=== PATIENT | female | born 1940 | race Caucasian/White ===

== ENCOUNTER 2019-04-03 12:26 | Observation (INO) | payer MEDICARE, BC ==
[~2019-04-03] VITALS: Ht 165.1 cm; Wt 104.5 kg
--- NOTE | 2019-04-03 12:26 | NUR ---
PT TO ROOM VIA EMS
--- NOTE | 2019-04-03 12:31 | NUR ---
PT TAKEN TO CT. SCAN
--- NOTE | 2019-04-03 13:00 | NUR ---
PT RESTING QUIETLY ON STRETCHER, DUE TO TAKING BLOOD THINNERS, INFORMED PT THAT SHE WOULD MOST LIKELY BE STAYING IN HOSPITAL. PT VOICES UNDERSTANDING. WARM BLANKET GIVEN. 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 AT BEDSIDE.
[2019-04-03 13:23] LABS: HEMATOCRIT 33.6 % (37.0-47.0); HEMOGLOBIN 11.2 g/dl (12.0-16.0); IMMATURE GRANULOCYTES 0.6 % (0.0-5.0); MEAN CELL VOLUME 91.6 fL CALC (80.0-100.0); MEAN CORPUSCULAR HGB 30.5 pG CALC (26.0-32.0); MEAN CORPUSCULAR HGB CONC 33.3 g/L CALC (32.0-36.0); NEUT# 4.5 thou/uL (2.00-7.15); RED BLOOD COUNT 3.67 mill/uL (4.20-5.60); RED CELL DISTRI WIDTH 12.9 % (11.5-15.5)
--- NOTE | 2019-04-03 13:50 | NUR ---
PT STATES HEADACHE HAS LESSENED. LAYING ON SIDE WATCHING TV AT THIS TIME.
[2019-04-03 14:31] LABS: ANION GAP 13 (6-22 (CALC)); BUN 19 mg/dL (8-23); BUN/CREATININE RATIO 27 (12-20 (CALC)); CARBON DIOXIDE 25 mmol/l (22-30); CHLORIDE 96 mmol/l (95-108); CREATININE 0.7 mg/dL (0.5-1.0); GFR > 60 ML/MIN (>=60 (CALC)); GFR FOR AFR.AMER. > 60 ML/MIN (>=60 (CALC)); POTASSIUM 4.4 mmol/l (3.5-5.1); SODIUM 130 mmol/l (137-146)
[2019-04-03] MEDS ORDERED: LOSARTAN POTASS50 MG PO (14:33)
[2019-04-03] MEDS ORDERED: ZETIA10 MG PO (14:34)
[2019-04-03] MEDS ORDERED: LEVOTHYROXIN75 MCG PO (14:34)
[2019-04-03] MEDS ORDERED: CITALOPRAM40 M1 PO (14:34)
[2019-04-03] MEDS ORDERED: CARTIA XT180 MG PO (14:34)
[2019-04-03] MEDS ORDERED: CALCIUM600 M1 PO (14:35)
[2019-04-03] MEDS ORDERED: VITAMIN B-1100 M1 PO (14:35)
[2019-04-03] MEDS ORDERED: VITAMIN D32000 UNIT PO (14:36)
[2019-04-03] MEDS ORDERED: MAGNESIUM400 MG PO (14:36)
[2019-04-03] MEDS ORDERED: FOLIC ACID1 MG PO (14:37)
[2019-04-03] MEDS ORDERED: PROTONIX40 M2 PO (14:37)
[2019-04-03] MEDS ORDERED: SINGULAIR10 MG PO (14:38)
[2019-04-03] MEDS ORDERED: PROAIR DIG108 MCG/AC IN (14:38)
[2019-04-03] MEDS ORDERED: MELOXICAM7.5 MG PO (14:38)
[2019-04-03] MEDS ORDERED: XARELTO10 MG PO (14:39)
[2019-04-03] MEDS ORDERED: DULERA1 AE1 IN (14:39)
--- NOTE | 2019-04-03 14:47 | NUR ---
ASSISSTED PT TO BEDSIDE COMMODE. STATES IS SLIGHTLY INCREASED UNSTEADINESS. BLOOD PRESSURE HAS DECREASED 106/72
--- NOTE | 2019-04-03 15:21 | NUR ---
PT REMAINS PAIN FREE , RESTING QUIETLY ON STRETCHER, AT BEDSIDE.
--- NOTE | 2019-04-03 16:25 | NUR ---
NO HEADACHE AT THIS TIME. PT UP TO BEDSIDE COMMODE. VITAL SIGNS REMAIN STABLE
--- NOTE | 2019-04-03 17:25 | NUR ---
PT RESTING QUIETLY ON STRETCHER , REFUSED THE MEAL TRAY, STATES IT LOOKS NASTY. WILL HAVE BRING HER SOMETHING TO EAT. ALERT/ORIENTED. NO DIZZINESS AT THIS TIME
--- NOTE | 2019-04-03 18:24 | NUR ---
DR. FERNÁNDEZ SPEAKING WITH PT. ADVISED PT OF BUSY ER STATUS, AND WOULD BE TAKING PT TO ROOM SOON POSSIBLE
--- NOTE | 2019-04-03 18:39 | NUR ---
ADVISED PT THAT ROOM IS NOT READY YET FOR PT TO BE TAKEN TO MED SURG
--- NOTE | 2019-04-03 19:03 | NUR ---
REPORT GIVEN TO CUPOLA OPERATOR FOR CONTINUATION OF CARE.
--- NOTE | 2019-04-03 19:05 | NUR ---
IN ROOM INTRODUCED SELF TO PT. NO C/O. AWAITING ROOM TO BE CLEANED.
--- NOTE | 2019-04-03 19:54 | NUR ---
PT. TAKEN TO CA FLOOR VIA STRETCHER, NO C/O.
--- NOTE | 2019-04-03 20:00 | NUR ---
PT ARRIVED TO FLOOR VIA STRETCHER ACCOMPAINED BY ER STAFF AND . PT ALERT AND ORIENTED X3. NO APPARENT DISTRESS NOTED. PT DENIES ANY PAIN OR DISCOMFORT. PT AMBULATED FROM STRETCHER TO BED WITH STEADY GAIT. PT ORIENTED TO ROOM AND CALL LIGHT SYSTEM. DISCUSSED POC. PT VERBALIZED UNDERSTANDING. CALL LIGHT WITHIN REACH. WILL CONTINUE TO MONITOR.
--- NOTE | 2019-04-03 21:15 | NUR ---
PT CALLED THERMODYNAMICS PROFESSOR TO ROOM DUE TO IV SITE BLEEDING. SMALL AMOUNT OF BLOOD NOTED UNDER EMS DRESSING. DRESSING REMOVED AT THIS TIME. SITE CLEANSE WITH NS AND PATTED DRY. NEW DRESSING APPLIED. IV SITE FLUSHES WELL WITH BRISK BLOOD RETURN. PT TOLERATED WELL. IV SITE WRAPPED WITH STRETCH GAUZE AND CLING NETTING. WILL CONTINUE TO MONITOR.
[2019-04-03 23:21] VITALS: BP 118/60
--- NOTE | 2019-04-04 00:15 | NUR ---
PT RESTING IN BED WITH EYES CLOSED. NO APPARENT DISTRESS NOTED. PT WAKES EASILY. DENIES ANY CURRENT WANTS OR NEEDS. CALL LIGHT WITHIN REACH. WILL CONTINUE TO MONITOR.
[2019-04-04 03:37] VITALS: BP 113/58
--- NOTE | 2019-04-04 04:45 | NUR ---
PT RESTING IN BED. NO APPARENT DISTRESS NOTED. ASSISTED PT TO BSC. PT VOIDED WITHOUT DIFFICULTY. PT DENIES ANY DIZZINESS OR DISCOMFORT. NO CURRENT WANTS OR NEEDS. CALL LIGHT WITHIN REACH. WILL CONTINUE TO MONITOR.
[2019-04-04 05:34] LABS: HEMATOCRIT 33.2 % (37.0-47.0); HEMOGLOBIN 10.5 g/dl (12.0-16.0); MEAN CELL VOLUME 94.3 fL CALC (80.0-100.0); MEAN CORPUSCULAR HGB 29.8 pG CALC (26.0-32.0); MEAN CORPUSCULAR HGB CONC 31.6 g/L CALC (32.0-36.0); RED BLOOD COUNT 3.52 mill/uL (4.20-5.60)
[2019-04-04 05:59] LABS: ANION GAP 12 (6-22 (CALC)); BUN 19 mg/dL (8-23); BUN/CREATININE RATIO 22 (12-20 (CALC)); CARBON DIOXIDE 28 mmol/l (22-30); CHLORIDE 97 mmol/l (95-108); CREATININE 0.8 mg/dL (0.5-1.0); GFR > 60 ML/MIN (>=60 (CALC)); GFR FOR AFR.AMER. > 60 ML/MIN (>=60 (CALC)); POTASSIUM 4.7 mmol/l (3.5-5.1); SODIUM 132 mmol/l (137-146)
[2019-04-04 08:12] VITALS: BP 145/84
--- NOTE | 2019-04-04 11:23 | NUR ---
PATIENT NO C/O PAIN, NO S/S RESP DISTRESS, PATIENT A/O PUPILS ARE REACTIVE NOT EQUAL, WILL CONTINUE TO MONITOR PATIENT HOURLY ROUNDING, CALL LIGHT WITHIN REACH
--- NOTE | 2019-04-04 11:26 | NUR ---
PATIENT A/O PUPILS ARE REACTIVE NOT EQUAL DR. LEDEZMA IS AWARE, MD ORDERED REPEAT CT BRAIN, IF CT BRAIN IS NORMAL PATIENT WILL DC PER MD ORDERS, WILL CONTINUE TO MONITOR PATIENT HOURLY, CALL WITHIN REACH
[2019-04-04 12:04] VITALS: BP 134/76
[2019-04-04 16:13] VITALS: BP 147/63
--- NOTE | 2019-04-04 18:00 | NUR ---
PATIENT A/O, NO S/S RESP, NO C/O PAIN, MD ORDERED PATIENT TO DC TO HOME AND FOLLOW UP WITH PCP IF PATIENT CT BRAIN NORMAL, CT BRAIN NO ACUTE FINDING AWARE OF CT RESULTS, EDUCATED PATIENT DC INSTRUCTION, PATIENT UNDERSTOOD DC INSTRUCTIONS, STAFF ASSISTED PATIENT TO CAR VIA WHEELCHAIR
== END 2019-04-04 18:05 | disposition home or self-care (01) ==
LOC: ED 12:26 → ED-I 13:26 → ED 13:26 → ED-I 15:13 → ED 15:32 → MS2 15:33
PROVIDERS: Family Medicine; ADMIT Internal Medicine; ATTEND Internal Medicine
DX: S00.03XA Contusion of scalp, initial encounter (principal); I48.0 Paroxysmal atrial fibrillation; I10 Essential (primary) hypertension; E03.9 Hypothyroidism, unspecified; M54.9 Dorsalgia, unspecified; G89.29 Other chronic pain; W11.XXXA Fall on and from ladder, initial encounter; Y92.009 Unspecified place in unspecified non-institutional (private) residence as the place of occurrence of the external cause; Z79.01 Long term (current) use of anticoagulants
CPT/HCPCS: G0378

== ENCOUNTER 2019-06-16 14:56 | Inpatient (IN) | payer MEDICARE, BC ==
[~2019-06-16] VITALS: Ht 165.1 cm; Wt 104.5 kg
[~2019-06-16 14:56] MED LIST: CALCIUM600 M1 PO; CARTIA XT180 MG PO; CITALOPRAM40 M1 PO; DULERA1 AE1 IN; FOLIC ACID1 MG PO; LEVOTHYROXIN75 MCG PO; LOSARTAN POTASS50 MG PO; MAGNESIUM400 MG PO; MELOXICAM7.5 MG PO; PROAIR DIG108 MCG/AC IN; PROTONIX40 M2 PO; SINGULAIR10 MG PO; VITAMIN B-1100 M1 PO; VITAMIN D32000 UNIT PO; XARELTO10 MG PO; ZETIA10 MG PO
--- NOTE | 2019-06-16 15:17 | NUR ---
PT TO ROOM FOR EXAM
--- NOTE | 2019-06-16 15:25 | NUR ---
PT ASSESSED. CHANGED TO GOWN AND MONITORS APPLIED. PT REPORTS SHORT OF BREATH WITH PRODUCTIVE COUGH X 1 WEEK. BREATH SOUNDS BILAT EXPIRATORY WHEEZING. DENIES CARDIAC SYMPTOMS.
[2019-06-16 16:07] LABS: HEMATOCRIT 38.9 % (37.0-47.0); IMMATURE GRANULOCYTES 0.3 % (0.0-5.0); MEAN CELL VOLUME 89.8 fL CALC (80.0-100.0); MEAN CORPUSCULAR HGB 28.9 pG CALC (26.0-32.0); MEAN CORPUSCULAR HGB CONC 32.1 g/L CALC (32.0-36.0); NEUT# 6.53 thou/uL (2.00-7.15); RED BLOOD COUNT 4.33 mill/uL (4.20-5.60); RED CELL DISTRI WIDTH 13.1 % (11.5-15.5)
[2019-06-16 16:09] LABS: HEMOGLOBIN 12.5 g/dl (12.0-16.0)
--- NOTE | 2019-06-16 16:25 | NUR ---
PT RESTING COMFORTABLY AWAITING LAB RESULTS
[2019-06-16 16:31] LABS: ANION GAP 12 (6-22 (CALC)); BUN 16 mg/dL (8-23); BUN/CREATININE RATIO 23 (12-20 (CALC)); CARBON DIOXIDE 27 mmol/l (22-30); CHLORIDE 96 mmol/l (95-108); CREATININE 0.7 mg/dL (0.5-1.0); GFR > 60 ML/MIN (>=60 (CALC)); GFR FOR AFR.AMER. > 60 ML/MIN (>=60 (CALC)); POTASSIUM 4.7 mmol/l (3.5-5.1); SODIUM 131 mmol/l (137-146)
[2019-06-16] MEDS ORDERED: STRESS B PO (17:15)
[2019-06-16] MEDS ORDERED: LOSARTAN POTASS50 MG PO (17:16)
[2019-06-16] MEDS ORDERED: FLECAINIDE50 MG PO (17:20)
[2019-06-16] MEDS ORDERED: MELOXICAM7.5 MG PO (17:20)
[2019-06-16] MEDS ORDERED: CLARITHROMYC500 M2 PO (17:21)
--- NOTE | 2019-06-16 17:35 | NUR ---
REPORT GIVEN TO KRISTI MANRIQUEZ. MED SURG
--- NOTE | 2019-06-16 17:42 | NUR ---
PT ARRIVED TO UNIT VIA WHEELCHAIR WITH ER STAFF AND ; ALERT AND ORIENTED. DENIES PAIN. RESPIRATIONS EVEN AND UNLABORED ON ROOM AIR. LOOSE PRODUCTIVE COUGH. LR FLUIDS INFUSING UPON ARRIVAL ALONG WITH ZITHROMAX. TELE ON. WHEEZING THROUGHOUT LUNG NGUYEN. ORIENTED TO ROOM AND CALL LIGHT SYSTEM. PLAN OF CARE DISCUSSED. PT ENCOURAGED TO VERBALIZE CONCERNS. STATES UNDERSTANDING. SAFETY MEASURES IN PLACE. CALL LIGHT WITHIN REACH.
--- NOTE | 2019-06-16 17:45 | NUR ---
PT TAKEN VIA WHEELCHAIR TO MED SURG. TELEMETRY IN PLACE
[2019-06-16 18:11] VITALS: BP 128/71
[2019-06-16 18:25] VITALS: BP 125/65
--- NOTE | 2019-06-16 20:00 | NUR ---
PATIENT RESTING IN BED AT THIS TIME WITH O2 VIA ANASAL CANNULA IN PLACE. AWAKE ALERT AND ORIENTEDX3. IV SITE TO LEFT WRIST INFILTRATED. NEWIV STARTED TO LEFT FOREARM-#22 GAUGE WITH GOOD BLOOD RETURN. PATIENT WITH OCC NON-PRODUCTIVE COUGH. TELE MONITOR INPLACE. UP TO BR TO VOID-WEARS BREIF FOR STRESS INCONT. SAFETY PRECAUTIONS REINFORCED. CALL LIGHT IN REACH. WILL CONT TO MONITOR.
--- NOTE | 2019-06-16 22:00 | NUR ---
PATIENT RESTING IN BED-MEDICATED WITH ROBITUSSIN AC FOR COUGH. SOLU-MEDROL GIVEN ORDERED. TREVOR STATES THAT HER WILL BE BRINGING IN HER FLECAINIDE IN THE MORNING FOR PHARM TO ACCESS. O2 VIA NASAL CANNULA IN PLACE. CALL LIGHT IN REACH. WILL CONT TO MONITOR.
[2019-06-16 22:40] LABS: URINE BILIRUBIN - DIPSTICK NEGATIVE (NEGATIVE); URINE BLOOD DIPSTICK NEGATIVE (NEGATIVE); URINE COLOR YELLOW; URINE GLUCOSE - DIPSTICK NEGATIVE (NEGATIVE); URINE KETONE NEGATIVE (NEGATIVE); URINE LEUK ESTERASE NEGATIVE (NEGATIVE); URINE NITRITE - DIPSTICK NEGATIVE (Negative); URINE PH 6.5 (4.5-8.0); URINE PROTEIN - DIPSTICK NEGATIVE (NEG-TRACE); URINE UROBILINOGEN - DIPSTICK 0.2 E.U./dL (0.2)
[2019-06-16 23:43] VITALS: BP 136/78
[2019-06-17] VITALS (7 sets, daily range): BP systolic 114–170; BP diastolic 54–80
--- NOTE | 2019-06-17 02:00 | NUR ---
APPEARS SLEEPING AT THIS TIME WITH O2 VIA NASAL CANNULA IN PLACE. EYES CLOSED AND RESPS ARE EVEN AND UNLABORED. TELE MONITOR IN PLACE. CALL LIGHT IN REACH. WILL CONT TO MONITOR.
--- NOTE | 2019-06-17 04:00 | NUR ---
APPEARS SLEEPING AT THIS TIME WITH O2 VIA NASAL CANNULA IN PLACE. HOB SLIGHTLY ELEVATED. TELE MONITOR IN PLACE. CALL LIGHT IN REACH. WILL CONT TO MONITOR
--- NOTE | 2019-06-17 07:00 | NUR ---
REPORT RECEIVED FROM MITRA WATTS;PT RESTING IN SEMI FOWLERS POSITION;INTRODUCED SELF TO PT AND POC DISCUSSED;RESPIRATIONS EVEN AND UNLABORED ON RA;PT DENIES ANY CURRENT PAIN OR NEEDS;TELE MONITORING IN PLACE;PT ENCOURAGED TO CALL FOR ASSISTANCE IF NEEDED;FALL PRECAUTIONS IN PLACE WITH BED IN THE LOWEST POSITION AND CALL LIGHT IN REACH;WILL CONTINUE TO MONITOR
--- NOTE | 2019-06-17 07:45 | NUR ---
PT RESTING IN SEMI FOWLERS POSITION,A&O X3;VS OBTAINED AND ASSESSMENT COMPLETED;BP ELEVATED AT 170/63 HR 79, ALL MORNING MEDICATIONS TO BE ADMINISTERED;PT DENIES ANY CURRENT PAIN,PAIN SCALE AND REPORTING EDUCATED;PT REQUESTS COUGH MEDICATION AT THIS IMT, AND IS MEDICATED WITH PRN ROBITUSSIN AC PER ORDER;RESPIRATIONS SHALLOW ON RA,WHEEZY LUNG SOUNDS;NON-PRODUCTIVE COUGH NOTED;ABDOMEN SOFT ON PALPATION AND ACTIVE IN ALL 4 QUADRANTS;WEAK PEDAL PULSES;SKIN INTACT;TELE MONITORING IN PLACE;#22G TO LFA FLUSHED AND PATENT,SITE APPEARS HEALTHY;PT DENIES ANY ADDITIONAL NEEDS AT THIS TIME AND IS ENCOURAGED TO CALL FOR ASSISTANCE IF NEEDED;FALL PRECAUTIONS IN PLACE WITH BED IN THE LOWEST POSITION AND CALL LIGHT IN REACH;WILL CONTINUE TO MONITOR
--- NOTE | 2019-06-17 09:30 | NUR ---
BP RE-CHECK 123/59 HR 80
--- NOTE | 2019-06-17 12:40 | NUR ---
PT RESTING IN SEMI FOWLERS POSITION;RESPIRATIONS REMAIN EVEN AND UNLABORED,SHALLOW ON RA;PT DENIES ANY CURRENT PAIN OR DISCOMFORTS;TELE MONITORING;IV SITE PATENT;ASSESSMENT REMAINS UNCHANGED AT THIS TIME;ENCOURAGED TO CALL FOR ASSISTANCE IF NEEDED;CALL LIGHT IN REACH;WILL CONTINUE TO MONITOR
--- NOTE | 2019-06-17 16:05 | NUR ---
PT RESTING IN SEMI FOWLERS POSITION;RESPIRATIONS EVEN AND UNLABORED ON RA;PT REPORTS HEADACHE PAIN RATING 8/10 ON THE PAIN SCALE AND REQUESTS PAIN MEDICATION,PT TO BE MEDICATED WITH PRN TYLENOL 650MG PO;IV SITE FOUND TO BE INFILTRATED, IV SITE REMOVED WITH CATHETER INTACT AND NEW #22G STARTED TO RIGHT HAND ON 1ST ATTEMPT,PT TOLERATED WELL;PT DENIES ANY ADDITIONAL NEEDS AT THIS TIME AND IS ENCOURAGED TO CALL FOR ASSISTANCE IF NEEDED;FALL PRECAUTIONS IN PLACE WITH CALL LIGHT IN REACH;WILL CONTINUE TO MONITOR
--- NOTE | 2019-06-17 20:00 | NUR ---
PATIENT RESTING IN BED WITH COMPUTER IN FRONT OF HER. AWAKE ALERT AND ORIENTEDX3. TELE MONITOR IN PLACE. IV SITE TO LEFT HAND INTACT AND APPEARS HEALTHY AT THIS TIME WITH GOOD BLOOD RETURN. STILL WITH OCC PRODUCTIVE COUGH WITH THICK YELLOW SECREATIONS PER PATIENT. SAFETY PREAUTIONS REINFORCED. CALL LIGHT IN REACH. WILL CONT TO MONITOR.
--- NOTE | 2019-06-18 | NUR ---
PATIENT STILL AWAKE. VS TAKEN AND REORDED. TELE MONITOR IN PLAE. PATIENT UP TO THE BSC TO VOID SMALL AMT OF YELLOW URINE. SAFETY PRECAUTIONS REINFORCED. CALL LIGHT IN REACH. WILL CONT TO MONITOR.
--- NOTE | 2019-06-18 02:16 | NUR ---
PATIENT IS POSITIONED ON LEFT SIDE WITH EYES CLOSED. APPEARS SLEEPING WITH EYES CLOSED. TELE MONITOR IN PLACE. CALL LIGHT IN REACH. WILL CONT TTO MONITOR.
[2019-06-18 04:21] VITALS: BP 141/80
[2019-06-18 04:42] LABS: HEMATOCRIT 35.8 % (37.0-47.0); HEMOGLOBIN 11.7 g/dl (12.0-16.0); IMMATURE GRANULOCYTES 0.6 % (0.0-5.0); MEAN CELL VOLUME 87.7 fL CALC (80.0-100.0); MEAN CORPUSCULAR HGB 28.7 pG CALC (26.0-32.0); MEAN CORPUSCULAR HGB CONC 32.7 g/dL CAL (32.0-36.0); NEUT# 10.03 thou/uL (2.00-7.15); RED BLOOD COUNT 4.08 mill/uL (4.20-5.60); RED CELL DISTRI WIDTH 12.8 % (11.5-15.5)
[2019-06-18 04:57] LABS: ANION GAP 13 (6-22 (CALC)); BUN 17 mg/dL (8-23); BUN/CREATININE RATIO 28 (12-20 (CALC)); CARBON DIOXIDE 25 mmol/l (22-30); CHLORIDE 97 mmol/l (95-108); CREATININE 0.6 mg/dL (0.5-1.0); GFR > 60 ML/MIN (>=60 (CALC)); GFR FOR AFR.AMER. > 60 ML/MIN (>=60 (CALC)); MAGNESIUM 1.9 mg/dL (1.6-2.3); POTASSIUM 4.2 mmol/l (3.5-5.1); SODIUM 131 mmol/l (137-146)
--- NOTE | 2019-06-18 07:00 | NUR ---
SHIFT CHANGE REPORT, PT AWAKE ALERT AND ORIENTED RELAXING IN BED, NO C/O DISCOMFORT AT THIS TIME, TELE MONITOR IN PLACE, CALL DIETZ IN REACH.
[2019-06-18 07:56] VITALS: BP 154/73
[2019-06-18 11:11] VITALS: BP 146/71
--- NOTE | 2019-06-18 12:00 | NUR ---
SITTING UP IN BED, ATE MEAL, NO C/O DISCOMFORT AT THIS TIME.
[2019-06-18 15:53] VITALS: BP 129/67
--- NOTE | 2019-06-18 16:00 | NUR ---
RELAXING IN ROOM, SPOUSE VISITING.
[2019-06-18 18:31] VITALS: BP 131/72
--- NOTE | 2019-06-18 20:05 | NUR ---
PHYSICAL ASSESMENT COMPLETE. PLAN OF CARE REVIEWED. PT VERBALIZES UNDERSTANDING AND DENIES QUESTIONS. MEDICATED PRN FOR COUGH AND H/A, SEE MAR. PT HAS NO IV ACCESS, NEW IV STARTED. LFA, 22G, X1 ATTEMPT. PT TOLERATED PROCEDURE WELL. DENIES FURTHER NEEDS @ THIS TIME. CALL DIETZ WITHIN REACH. AGREES TO CALL PRN. BED LOCKED IN LOW POSITION W/ BEDRAILS UPX2. ITEMS WITHIN REACH.
[2019-06-18 23:45] VITALS: BP 126/76
--- NOTE | 2019-06-19 | NUR ---
PT SLEEPING, APPEARS COMFORTABLE AND IN NO DISTRESS, RESP REG & UNLABORED. WAKES EASILY. ASSESMENT UNCHANGED. DENIES NEEDS @ THIS TIME. CALL DIETZ REMAINS WITHIN REACH. AGREES TO CALL PRN. FALL AND SAFETY INTERVENTIONS REMAIN IN PLACE.
[2019-06-19 03:51] VITALS: BP 147/84
[2019-06-19 05:41] LABS: ANION GAP 12 (6-22 (CALC)); BUN 18 mg/dL (8-23); BUN/CREATININE RATIO 28 (12-20 (CALC)); CARBON DIOXIDE 26 mmol/l (22-30); CHLORIDE 100 mmol/l (95-108); CREATININE 0.6 mg/dL (0.5-1.0); GFR > 60 ML/MIN (>=60 (CALC)); GFR FOR AFR.AMER. > 60 ML/MIN (>=60 (CALC)); POTASSIUM 4.5 mmol/l (3.5-5.1); SODIUM 133 mmol/l (137-146)
--- NOTE | 2019-06-19 05:48 | NUR ---
NO CHANGES IN ASSESMENT. PT SLEEPING, WAKES EASILY. DENIES NEEDS AT THIS TIME. CALL DIETZ REMAINS WITHIN REACH, AGREES TO CALL PRN. FALL AND SAFETY INTERVENTION REMAIN IN PLACE.
--- NOTE | 2019-06-19 07:05 | NUR ---
REPORT RECEIVED FROM MITRA ALLEN;PT APPEARS TO BE SLEEPING IN SEMI FOWLERS POSITION;NO S/S OF DISTRESS NOTED;RESPIRATIONS EVEN AND UNLABORED ON O2 @ 2L VIA NC;TELE MONITORING IN PLACE;ALL SAFETY PRECAUTIONS IN PLACE WITH BED IN THE LOWEST POSITION AND CALL LIGHT IN REACH;WILL CONTINUE TO MONITOR
[2019-06-19 09:20] VITALS: BP 151/71
--- NOTE | 2019-06-19 09:20 | NUR ---
PT RESTING IN SEMI FOWLERS POSITION,A&O X3;VS OBTAINED AND ASSESSMENT COMPLETED;PT DENIES ANY CURRENT PAIN OR DISCOMFORTS,PAIN SCALE AND REPORTING EDUCATED;RESPIRATIONS SHALLOW ON O2 @ 3L VIA NC,NON-PRODUCTIVE COUGH NOTED;ABDOMEN SOFT ON PALPATION AND ACTIVE IN ALL 4 QUADRANTS;WEAK PEDAL PULSES;SKIN INTACT;TELE MONITORING IN PLACE;#22G TO LFA FLUSHED AND PATENT,SITE APPEARS HEALTHY;PT MEDICATED WITH MOM W/PRUNE JUICE FOR CONSTIPATION;PT DENIES ANY ADDITIONAL NEEDS AND IS ENCOURAGED TO CALL FOR ASSISTANCE IF NEEDED;CALL LIGHT IN REACH;WILL CONTINUE TO MONITOR
[2019-06-19 10:57] VITALS: BP 128/60
--- NOTE | 2019-06-19 11:55 | NUR ---
PT OOB AMBULATING TO RESTROOM INDEPENDENTLY;RESPIRATIONS REMAIN SHALLOW ON O2 @ 3L VIA NC;PT DENIES ANY CURRENT PAIN OR NEEDS;TELE MONITORING IN PLACE;IV SITE REMAINS PATENT;ASSESSMENT REMAINS UNCHANGED AT THIS TIME;PT ENCOURAGED TO CALL FOR ASSISTANCE IF NEEDED;FALL PRECAUTIONS IN PLACE WITH CALL LIGHT IN REACH;WILL CONTINUE TO MONITOR
[2019-06-19 15:43] VITALS: BP 119/61
--- NOTE | 2019-06-19 15:45 | NUR ---
PT RESTING IN SEMI FOWLERS POSITION WITH SPOUSE AT BEDSIDE;PT OCCASIONALLY WALKING THE HALLS WITH ;RESPIRATIONS EVEN AND UNLABORED ON O2 @ 3L VIA NC;PT DENIES ANY CURRENT PAIN OR NEEDS;TELE MONITORING IN PLACE;IV SITE PATENT;ENCOURAGED TO CALL FOR ASSISTANCE IF NEEDED;CALL LIGHT IN REACH;WILL CONTIUE TO MONITOR
[2019-06-19 18:44] VITALS: BP 131/65
--- NOTE | 2019-06-19 20:20 | NUR ---
PHYISCAL ASSESMENT COMPLETE. PLAN OF CARE REVIEWED W/ PT. PT VERBALIZES UNDERSTANDING, DENIES QUESTIONS @ THIS TIME. PT DENIES NEEDS @ THIS TIME. BED LOCKED IN LOW POSITION W/ BEDRAILS UPX2. ITEMS WITHIN REACH. CALL DIETZ WITHIN REACH. AGREES TO CALL PRN.
--- NOTE | 2019-06-19 21:10 | NUR ---
PT DOWN TO CT VIA WC W/ O2 @ 2099, ACCOMPANIED BY Alec COKO LPN. PT RETURNS AT 2106. BACK TO ROOM 279. TOLERATED PROCEDURE WELL. SITTING UP IN CHAIR, USING LABTOP. DENIES NEEDS AT THIS TIME. CALL DIETZ WITHIN REACH. AGREES TO CALL PRN.
[2019-06-20 00:07] VITALS: BP 148/77
--- NOTE | 2019-06-20 00:09 | NUR ---
PT APPEARS TO BE SLEEPING COMFORTABLY. NO APPARENT DISTRESS. RESP REGULAR & UNLABORED. BED REMAINS LOCKED IN LOW POSITION W/ BEDRAILS UPX2. ITEMS REMAIN WITHIN REACH. CALL DIETZ REMAINS WITHIN REACH.
[2019-06-20 04:20] VITALS: BP 140/73
--- NOTE | 2019-06-20 07:10 | NUR ---
REPORT RECIEVED FROM MITRA ALLEN;PT APPEARS TO BE SLEEPING IN SEMI FOWLERS POSITION;NO S/S OF DISTRESS NOTED;RESPIRATIONS SHALLOW ON O2 @ 3L VIA NC;TELE MONITORING IN PLACE;ALL SAFETY PRECAUTIONS IN PLACE WITH BED IN THE LOWEST POSITION AND CALL LIGHT IN REACH;WILL CONTINUE TO MONITOR
[2019-06-20 08:57] VITALS: BP 149/60
--- NOTE | 2019-06-20 09:00 | NUR ---
PT OOB RESTING IN CHAIR WATCHING TV,A&O X3;VS OBTAINED AND ASSESSMENT COMPLETED;PT DENIES ANY CURRENT PAIN OR DISCOMFORTS,PAIN SCALE AND REPORTING EDUCATED;RESPIRATIONS SHALLOW ON O2 @ 2L VIA NC,NON-PRODUCTIVE COUGH NOTED;ABDOMEN DISTENDED/SOFT ON PALPATION AND ACTIVE IN ALL 4 QUADRANTS;WEAK PEDAL PULSES;SKIN INTACT;TELE MONITORING IN PLACE;#20G TO LAC FLUSHED AND PATENT,SITE APPEARS HEALTHY;PT DENIES ANY ADDITIONAL NEEDS AT THIS TIME AND IS ENCOURAGED TO CALL FOR ASSISTANCE IF NEEDED;CALL LIGHT IN REACH;WILL CONTINUE TO MONITOR
--- NOTE | 2019-06-20 09:19 | NUR ---
PT AMBULATING THE HALLWAYS
--- NOTE | 2019-06-20 09:56 | NUR ---
PT AMBULATING THE MOSES WITH RT FOR WALK TEST. O2 SATS DROPPED TO 86 ON RA,O2 REPLACED AND [place] TO 94% ON 2L VIA NC.
--- NOTE | 2019-06-20 10:03 | NUR ---
PT MEDICATED WITH PRN TYLENOL 650MG PO FOR HEADACHE PAIN RATING 8/10 ON THE PAIN SCALE,WILL CONTINUE TO MONITOR
[2019-06-20 10:52] VITALS: BP 147/77
--- NOTE | 2019-06-20 11:15 | NUR ---
AT BEDSIDE DISCUSSING POC WITH PT,BÁRBARA LAFLEUR AT SIDE.
[2019-06-20] MEDS ORDERED: IPRATROPIU0.5 MG/3 M NEB (11:18)
[2019-06-20] MEDS ORDERED: PREDNISONE10 MG PO (11:18)
[2019-06-20] MEDS ORDERED: LEVAQUIN750 MG PO (11:22)
--- NOTE | 2019-06-20 12:15 | NUR ---
PT OOB RESTING IN RECLINER WATCHING TV;RESPIRATIONS EVEN AND UNLABORED ON O2 @ 2L VIA NC;PT DENIES ANY CURRENT PAIN OR NEEDS;TELE MONITORING IN PLACE;IV SITE PATENT;PT TO BE D/C HOME WITH HOME OXYGEN,AWAITING HOME O2 ARRIVAL;PT DENIES ANY ADDITIONAL NEEDS AND IS ENCOURAGED TO CALL FOR ASSISTANCE IF NEEDED;CALL LIGHT IN REACH;WILL CONTINUE TO MONITOR
--- NOTE | 2019-06-20 12:26 | NUR ---
[facility] AT BEDSIDE DELIEVERING HOME OXYGEN.
--- NOTE | 2019-06-20 13:13 | NUR ---
ALL DISCHARGE INSTRUCTIONS PROVIDED AT THIS TIME;PT INSTRUCTED TO MATERIAL CREW SUPERVISOR RX AT [facility] FOR [place],PREDNISONE AND NEBS AND VERBALIZES UNDERSTANDING;PT DENIES ANY ADDITIONAL QUESTIONS OR NEEDS;IV SITE WAS REMOVED WITH CATHETER INTACT AND TELE MONITORING D/C;WHEELCHAIR TO BE PROVIDED FOR D/C HOME;AWAITING SPOUSE FOR TRANSPORTATION.
--- NOTE | 2019-06-20 13:42 | NUR ---
HOME MEDICATION PROVIDED FOR PT TO TAKE HOME FOR D/C.
--- NOTE | 2019-06-20 13:50 | NUR ---
PDischarge instructions given. Patient verbalizes understanding of same. Discharged in stable condition via Wheelchair to Home with spouse. All belongings sent with pt. PT TRANSPORTED TO [facility] IN STABLE CONDITION VIA WHEELCHAIR ACCOMPANIED BY ZEHRA DING AND SPOUSE FOR D/C HOME.SPOUSE TO TRANSORT PT HOME WITH HOME OXYGEN AT SIDE.
--- NOTE | 2019-06-23 13:41 | NUR ---
Riya discharge follow up call completed 06/23/19. Pt. is doing well. No fever, chills, excessive fatigue. Getting stronger each day. Obtained discharge medications and is taking them with no issue. Pt. has a follow up appt. with Dr. Price on . No questions or needs. Pt. states the hospital and staff have been absolutely superb." Very appreciative of the follow up call.
== END 2019-06-20 13:52 | disposition home or self-care (01) | DRG 191 ==
LOC: ED 14:56 → ED-I 16:15 → ED 16:28 → MS2 16:53 → ED 16:53 → ED-I 16:53 → MS2 17:15
PROVIDERS: Family Medicine; Nurse Practitioner Family; ADMIT Internal Medicine; ATTEND Internal Medicine
DX: J43.9 Emphysema, unspecified (principal); E87.1 Hypo-osmolality and hyponatremia; I10 Essential (primary) hypertension; I48.0 Paroxysmal atrial fibrillation; E03.9 Hypothyroidism, unspecified; E78.5 Hyperlipidemia, unspecified; K59.00 Constipation, unspecified; R09.02 Hypoxemia; Z87.891 Personal history of nicotine dependence
CPT/HCPCS: G0378

== ENCOUNTER 2021-11-22 19:44 | Inpatient (IN) | payer MEDICARE, BC ==
[2021-11-22] VITALS (13 sets, daily range): BP systolic 107–135; BP diastolic 45–114
[~2021-11-22] VITALS: Ht 165.1 cm; Wt 112.8 kg
[~2021-11-22 19:44] MED LIST changes: +CLARITHROMYC500 M2 PO; +DULERA 50-5 MCG1 AER IN; -DULERA1 AE1 IN; +FLECAINIDE50 MG PO; +IPRATROPIU0.5 MG/3 M NEB; +LEVAQUIN750 MG PO; +LOSARTAN POTAS100 MG PO; +PREDNISONE10 MG PO; -PROAIR DIG108 MCG/AC IN; +PROAIR HFA108 MCG/AC IN; +STRESS B PO
--- NOTE | 2021-11-22 20:02 | NUR ---
PATIENT ARRIVED WITH EMS ON O2 2 LPM. NURSE DING AT BEDSIDE.
[2021-11-22 20:51] LABS: ALKALINE PHOSPHATASE 83 u/l (38-126); ANION GAP 14 (6-22 (CALC)); BILIRUBIN, TOTAL 0.5 mg/dL (0.0-1.4); CARBON DIOXIDE 26 mmol/l (22-30); CHLORIDE 99 mmol/l (95-108); GFR FOR AFR.AMER. 29 ML/MIN (>=60 (CALC)); GFR OTHER RACES 24 ML/MIN (>=60 (CALC)); LIPASE 47 u/l (23-300); POTASSIUM 4.1 mmol/l (3.5-5.1); SGOT/AST 18 u/l (9-36); SODIUM 134 mmol/l (137-146)
[2021-11-22] MEDS ORDERED: OMEPRAZOLE DR40 MG PO (20:52)
[2021-11-22] MEDS ORDERED: ASPIRIN81 MG PO (20:57)
[2021-11-22] MEDS ORDERED: CARVEDILOL12.5 MG PO (20:57)
[2021-11-22] MEDS ORDERED: LEVOCETIRIZINE D5 MG PO (20:58)
[2021-11-22 21:00] LABS: BUN 43 mg/dL (8-23); BUN/CREATININE RATIO 22 (12-20 (CALC))
[2021-11-22] MEDS ORDERED: VITAMIN B COMPL1 TAB PO (21:00)
[2021-11-22] MEDS ORDERED: TRELEGY ELLIPTA1 AER IN (21:00)
--- NOTE | 2021-11-22 21:00 | NUR ---
Reassessment of patient completed. No distress noted.
[2021-11-22] MEDS ORDERED: VITAMIN C1000 MG PO (21:01)
[2021-11-22 21:02] LABS: HEMATOCRIT 31.2 % (37.0-47.0); HEMOGLOBIN 10.2 g/dl (12.0-16.0); IMMATURE GRANULOCYTES 2.1 % (0.0-5.0); MEAN CELL VOLUME 87.9 fL CALC (80.0-100.0); MEAN CORPUSCULAR HGB 28.7 pG CALC (26.0-32.0); MEAN CORPUSCULAR HGB CONC 32.7 g/dL CAL (32.0-36.0); NEUT# 10.21 thou/uL (2.00-7.15); RED BLOOD COUNT 3.55 mill/uL (4.20-5.60); RED CELL DISTRI WIDTH 14.1 % (11.5-15.5)
[2021-11-22 21:22] LABS: TSH, 3RD GENERATION 1.27 uIU/mL (0.47 - 4.68)
[2021-11-23] VITALS (9 sets, daily range): BP systolic 102–139; BP diastolic 34–73
[2021-11-23 00:18] LABS: URINE BILIRUBIN - DIPSTICK NEGATIVE (NEGATIVE); URINE BLOOD DIPSTICK SMALL (NEGATIVE); URINE COLOR YELLOW; URINE GLUCOSE - DIPSTICK NEGATIVE (NEGATIVE); URINE KETONE NEGATIVE (NEGATIVE); URINE PROTEIN - DIPSTICK TRACE mg/dL (NEG-TRACE); URINE UROBILINOGEN - DIPSTICK 0.2 E.U./dL (0.2)
[2021-11-23 00:19] LABS: URINE LEUK ESTERASE LARGE (NEGATIVE); URINE NITRITE - DIPSTICK POSITIVE (Negative)
[2021-11-23 00:23] LABS: URINE BACTERIA MANY hpf; URINE SQUAMOUS EPITHELIAL CELL FEW EPI/hpf (0-FEW); URINE WBC >100 WBC/hpf (0-5)
[2021-11-23] MEDS ORDERED: BACTRIM DS1 TAB PO (00:24)
--- NOTE | 2021-11-23 01:00 | NUR ---
WHEN GOING TO D/C PATIENT, SHE HAD REMOVED HER OWN IV. SHE WAS AWARE THAT SHE WAS GETTING D/C. WHILE ASSISTING TO STAND AND PIVOT TO WHEELCHAIR, THE PATIENT STATED SHE WAS TOO WEAK TO BE D/C AND REFUSED TO GO HOME. DR. ARMENTA INFORMED.
--- NOTE | 2021-11-23 01:35 | NUR ---
REPORT GIVEN TO MSDallas TAKING PATIENT TO ROOM 260.
--- NOTE | 2021-11-23 01:45 | NUR ---
PT RECEIVED FROM ED TO ROOM 260. ARRIVES VIA STRETCHER ACCOMPANIED BY ED RN. PT TRANSFERED TO BED. PT DENIES PAIN AT THIS TIME. ORIENTED TO UNIT, ROOM, CALL DIETZ, LIGHTS, TV. ICE WATER PROVIDED. CALL DIETZ WITHIN REACH. AGREES TO CALL PRN.
--- NOTE | 2021-11-23 02:00 | NUR ---
PHYSICAL ASSESMENT COMPLETE. PT CURRENTLY DENIES PAIN OR DISCOMFORT. SCHEDULED MEDICATIONS AND PRN MEDICATION ADMINISTERED, SEE E-MAR. PT PLACED ON O2 FOR A STAT OF 90%; PT STATING AT 94% ON O2. PT HAS COPD AND IS HOME DEPENDENT ON OXYGEN. PT IS EXPERIENING WEAKNESS AND HAS HAD A PUREWIK PLACED; AT HOME SHE STATES SHE USES THE BATHROOM AND WEARS A BRIEF. PT DENIES ANY FURTHER NEEDS AT THIS TIME. NEEDS AT THIS TIME. PLAN OF CARE REVIEWED, PT DENIES QUESTIONS, VERBALIZES UNDERSTANDING. ITEMS WITHIN REACH, BED LOCKED IN LOW POSITION W/ BEDRAILS UP X2. CALL DIETZ WITHIN REACH, AGREES TO CALL PRN.
--- NOTE | 2021-11-23 02:16 | NUR ---
PHYSICAL ASSESMENT COMPLETE. PT CURRENTLY DENIES PAIN OR DISCOMFORT. SCHEDULED MEDICATIONS AND PRN MEDICATION ADMINISTERED, SEE E-MAR. PT PLACED ON O2 FOR A STAT OF 90%; PT STATING AT 94% ON O2. PT HAS COPD AND IS HOME DEPENDENT ON OXYGEN. PT IS EXPERIENING WEAKNESS AND HAS HAD A PUREWIK PLACED; AT HOME SHE STATES SHE USES THE BATHROOM AND WEARS A BRIEF. PT DENIES ANY FURTHER NEEDS AT THIS TIME. PLAN OF CARE REVIEWED, PT DENIES QUESTIONS, VERBALIZES UNDERSTANDING. ITEMS WITHIN REACH, BED LOCKED IN LOW POSITION W/ BEDRAILS UP X2. CALL DIETZ WITHIN REACH, AGREES TO CALL PRN.
[2021-11-23 05:57] LABS: HEMATOCRIT 28.2 % (37.0-47.0); HEMOGLOBIN 9.1 g/dl (12.0-16.0); IMMATURE GRANULOCYTES 1.4 % (0.0-5.0); MEAN CELL VOLUME 89.8 fL CALC (80.0-100.0); MEAN CORPUSCULAR HGB CONC 32.3 g/dL CAL (32.0-36.0); NEUT# 12.03 thou/uL (2.00-7.15); RED BLOOD COUNT 3.14 mill/uL (4.20-5.60); RED CELL DISTRI WIDTH 14.2 % (11.5-15.5)
[2021-11-23 05:59] LABS: POTASSIUM 3.7 mmol/l (3.5-5.1)
--- NOTE | 2021-11-23 07:00 | NUR ---
RECEIVE REPORT FROM
--- NOTE | 2021-11-23 07:56 | NUR ---
PT REFUSED MEDICATIONS REFER. PT WITH AGGRESSIVE ATTITUDES. I INFORM TO REGINE . THE PT IS HANDES OVER NURSE.
--- NOTE | 2021-11-23 08:16 | NUR ---
PATIENT ALERT AND ORIENTED X3. TRIE TO EDUCATED ABOUD MEDICATIONS AND NURSING PLAN FOR TODAY. PATIENT UNCOOPERATIVE. CATARINA MANRIQUEZ CONTINUE IN PT CARE.
--- NOTE | 2021-11-23 11:39 | NUR ---
PATIENT RESTING IN BED. STABLE AT THIS TIME. CATARINA SMYTH IS TAKING CARE OF THE PATIENT. SAFETY AND FALL PRECAUTIONS IN PLACE. CALL LIGHT WITHIN REACH.
[2021-11-23] MEDS ORDERED: ESTRACE VAG0.1 MG/GM VA (13:15)
[2021-11-23] MEDS ORDERED: HYDROCHLOROT25 MG PO (14:46)
--- NOTE | 2021-11-23 16:00 | NUR ---
PATIENT RESTING IN BED. STABLE AT THIS TIME.
--- NOTE | 2021-11-23 19:05 | NUR ---
REPORT RECEIVED FROM Benny ESCOBAR RN
--- NOTE | 2021-11-24 03:43 | NUR ---
INTAKE CLERK Shona ROJO IN TO OBTAIN MORNING LABS.
[2021-11-24 04:16] VITALS: BP 136/63
[2021-11-24 05:44] LABS: HEMATOCRIT 28.9 % (37.0-47.0); HEMOGLOBIN 9.2 g/dl (12.0-16.0); MEAN CELL VOLUME 91.2 fL CALC (80.0-100.0); MEAN CORPUSCULAR HGB CONC 31.8 g/dL CAL (32.0-36.0); NEUT# 9.58 thou/uL (2.00-7.15); RED BLOOD COUNT 3.17 mill/uL (4.20-5.60); RED CELL DISTRI WIDTH 14.4 % (11.5-15.5)
--- NOTE | 2021-11-24 06:04 | NUR ---
PATIENT SITTING ON THE EDGE OF THE BED, NO APPARENT DISTRESS NOTED. PATIENT DOES NOT VERBALIZE ANY NEEDS AT THIS TIME.
[2021-11-24 06:11] VITALS: BP 123/62
[2021-11-24 07:21] LABS: CREATININE 2.5 mg/dL (0.5-1.0); MAGNESIUM 2.2 mg/dL (1.6-2.3); POTASSIUM 4.4 mmol/l (3.5-5.1)
--- NOTE | 2021-11-24 08:18 | NUR ---
RECIEVED REPORT. PT RESTING IN SEMI FOWLERS POSITION. PT A/OX3. ASSESSMENT COMPLETED. RESPIRATIONS EVEN AND UNLABORED ON ROOM AIR. LUNG SOUNDS DIMINISHED. BOWEL SOUNDS ACTIVE, LBM 11/20. PT COMPLAINS OF CONSTIPATION. #20G RAC INFUSING WITH IVF PER ORDER, SITE PATENT. SKIN INTACT. PT C/O OF 5/10 ABD PAIN. PT DENIES OF ANY ADDITIONAL NEEDS AT THIS TIME. ALL SAFTEY PRECAUTIONS ARE IN PLACE WITH CALL LIGHT IN REACH.
--- NOTE | 2021-11-24 10:03 | NUR ---
SOAP ASHLEY ENEMA ADMINISTERED AT THIS TIME. PT TOLERATED. BED HORNE PROVIDED . ALL SAFTEY PRECAUTIONS ARE IN PLACE WITH CALL LIGHT IN REACH
[2021-11-24 10:32] VITALS: BP 119/60
--- NOTE | 2021-11-24 11:40 | NUR ---
PT RESTING IN SEMI FOWLERS POSITION. RESPIRATIONS EVEN AND UNLABORED ON ROOM AIR. IV SITE PATENT. TELE MONITORING IN PLACE. PT HAD 2 BM AFTER SOAP ASHLEY ENEMA. PT REQUESTING TO BREAK FROM ENEMA AND TRY MORE LATER IN AFTERNOON. PT DENIES OF ANY ADDITIONAL NEEDS AT THIS TIME. ALL SAFTEY PRECAUTIONS ARE IN PLACE WITH CALL LIGHT IN REACH.
--- NOTE | 2021-11-24 14:00 | NUR ---
NO NEW BM. ENCOURAGE PT TO CONINUE SOAP ASHLEY ENEMA. PT REFUSING AT THIS TIME. PT REQUEST TO REST DUE TO NOT SLEEPING LAST NIGHT. ALL SAFTEY PRECAUTIONS ARE IN PLACE WITH CALL LIGHT IN REACH
[2021-11-24 14:47] VITALS: BP 137/52
--- NOTE | 2021-11-24 16:39 | NUR ---
ADDITIONAL SOAP SUDS ENEMA ADMINISTERED AT THIS TIME. PT TOLERATED WELL. PT PLACED ON BED HORNE. IV SITE REMAINS INFUSING WITH IVF PER ORDER. TELE MONITORING IN PLACE. PT DENIES OF ANY ADDITIONAL NEEDS AT THIS TIME. ALL SAFTEY PRECAUTIONS ARE IN PLACE WITH CALL LIGHT IN REACH
--- NOTE | 2021-11-24 17:00 | NUR ---
SCANT BM NOTED. PT REFUSING ANYMORE SOAP ASHLEY ENEMA.
[2021-11-24 18:47] VITALS: BP 119/55
--- NOTE | 2021-11-24 20:00 | NUR ---
PT IN BED AWAKE, NO DISTRESS NOTED, PT STATES NO PAIN, BED IN LOW POSITION, CALL LIGHT IN REACH
[2021-11-25] VITALS (12 sets, daily range): BP systolic 114–154; BP diastolic 55–77
--- NOTE | 2021-11-25 04:48 | NUR ---
PT IN BED AWAKE, NO OVERNIGHT EVENTS, NO BOWEL MOVEMENT OVERNIGHT, PT STATES NO PAIN, BED IN LOW POSITION, CALL LIGHT IN REACH
[2021-11-25 05:50] LABS: HEMATOCRIT 28.1 % (37.0-47.0); HEMOGLOBIN 8.9 g/dl (12.0-16.0); MEAN CELL VOLUME 91.2 fL CALC (80.0-100.0); MEAN CORPUSCULAR HGB 28.9 pG CALC (26.0-32.0); MEAN CORPUSCULAR HGB CONC 31.7 g/dL CAL (32.0-36.0); NEUT# 8.33 thou/uL (2.00-7.15); RED BLOOD COUNT 3.08 mill/uL (4.20-5.60); RED CELL DISTRI WIDTH 14.3 % (11.5-15.5)
[2021-11-25 05:51] LABS: ALBUMIN 3.2 g/dL (3.2-5.0); ALKALINE PHOSPHATASE 76 u/l (38-126); ANION GAP 11 (6-22 (CALC)); BILIRUBIN, TOTAL 0.4 mg/dL (0.0-1.4); BUN 33 mg/dL (8-23); BUN/CREATININE RATIO 16 (12-20 (CALC)); CARBON DIOXIDE 24 mmol/l (22-30); CHLORIDE 104 mmol/l (95-108); CREATININE 2.1 mg/dL (0.5-1.0); GFR FOR AFR.AMER. 27 ML/MIN (>=60 (CALC)); GFR OTHER RACES 23 ML/MIN (>=60 (CALC)); MAGNESIUM 2.4 mg/dL (1.6-2.3); POTASSIUM 4.3 mmol/l (3.5-5.1); SGOT/AST 16 u/l (9-36); SODIUM 135 mmol/l (137-146); TOTAL PROTEIN 6.1 g/dL (6.3-8.2)
--- NOTE | 2021-11-25 08:00 | NUR ---
PT IN BED RESTING . ALERT AND ORIENTATED X4. BREATHING IS EVEN AND UNLABORED. EXTREMITIES STRONG, NO DRIFT NOTED. SLIGHT SWELLING IN ANKLES. PT ENCOURAGED TO RECLINE WITH FEET HIGHER TO REDUCE SWELLING. PT REPORTS SLLIGHT DISCOMFORT IN ABDOMNE DUE TO NOT HAVING A BOWEL MOVEMENT. SKIN IS WARM, DRY AND INTACT. CALL LIGHT IN REACH. ALL SAFETY PRECAUTIONS IN PLACE AT THIS TIME.
--- NOTE | 2021-11-25 12:30 | NUR ---
PT IN ROOM WITH AT BEDSIDE. PT ALERT AN DORIENTATED X4. PT DENIES ANY NEEDS AT THIS TIME. NO BOWEL MOVEMT FROM PATIENT AT THIS TIME. BREATHING REMAINS EVEN AND UNLABORED AT THIS TIME. ALL SAFETY PRECAUTIONS IN PLACE AT THIS TIME.
--- NOTE | 2021-11-25 15:02 | NUR ---
SOPA ASHLEY ENEMA ADMINISTERED. SCANT BM NOTED. PT REFUSING CONTINUING ENEMA. PT INFORMED OF IMPACTION. PT REFUSING MANUAL DISIMPACTION. PT STATES THIS IS HER NORMAL AT HOME AND HAS THIS DIFFICULTIES AT HOME. MD TO BE AWARE.
--- NOTE | 2021-11-25 16:45 | NUR ---
PT RESTING IN BED WATCHING TV. PT ALERT AND ORIENTATED Z4. BREATHING REMAINS EVEN. C/O NUMBESS AND SLIGHT DISCOMFORT ON BOTTOM, BARRIER CREAM APPLIED PER ORDERS. PT DENIES ANY OTHER NEEDS AT THIS TIME. SAFETY PRECAUTIONS IN PLCE, CALL BENJAMIN MOBLEY.
--- NOTE | 2021-11-25 20:25 | NUR ---
PT MEDICATED AND ASSESSMENT COMPLETD. PT RECEIVED CALL ON CELLPHONE FROM WHILE I WAS IN THE ROOM. I ENCOURAGED HER TO CALL NEEDS ARISE. PUREWICK IN PLACE DRAINING TO CLS.
--- NOTE | 2021-11-25 22:23 | NUR ---
DISCUSSED POC WITH PT, ASKED IS SHE WOULD ALLOW THE SSE AGAIN TONIGHT, SHE REFUSED STATING THEY DID IT "THREE TIMES TODAY AND I WILL DO IT AGAIN TOMORROW."
[2021-11-26 04:07] VITALS: BP 163/81
[2021-11-26 04:59] LABS: HEMATOCRIT 29.9 % (37.0-47.0); HEMOGLOBIN 9.6 g/dl (12.0-16.0); IMMATURE GRANULOCYTES 1.8 % (0.0-5.0); MEAN CELL VOLUME 89.8 fL CALC (80.0-100.0); MEAN CORPUSCULAR HGB 28.8 pG CALC (26.0-32.0); MEAN CORPUSCULAR HGB CONC 32.1 g/dL CAL (32.0-36.0); NEUT# 7.41 thou/uL (2.00-7.15); RED BLOOD COUNT 3.33 mill/uL (4.20-5.60); RED CELL DISTRI WIDTH 14.1 % (11.5-15.5)
[2021-11-26 05:25] LABS: ALBUMIN 3.6 g/dL (3.2-5.0); BILIRUBIN, TOTAL 0.4 mg/dL (0.0-1.4); CREATININE 1.9 mg/dL (0.5-1.0); MAGNESIUM 2.7 mg/dL (1.6-2.3); POTASSIUM 4.7 mmol/l (3.5-5.1); TOTAL PROTEIN 6.6 g/dL (6.3-8.2)
--- NOTE | 2021-11-26 07:00 | NUR ---
report received from furniture sales associatenight stocker. pt sittig up high fowlers watching tv. pt a&ox3. states no pain. ivf infusign per emar. fall/saftey precaution in place. call light within reach
--- NOTE | 2021-11-26 09:00 | NUR ---
ASSISTED PT FROM COMMODE TO CHAIR. PT ABLE TO AMBULATE VIA STANDY BY ASSIST. BM SOFT, DARK BORWN/ MODERATE IN SIZE. IV INFILTRATED. COLD PACK PROVIDED. ASSESSMENT ALLOWED. PT A&OX3. LUNG SOUNDS CLEAR. BREATHING EVEN AND UNLABORED. BOWEL SOUNDS ACTIVE X4. STATES NO PAIN. TELE MONITOR IN PLACE, CONTINOUS MONITORING PER ED. FALL/SAFTEY PRECAUTION IN PLACE. CALL LIGHT WITHIN REACH.
[2021-11-26 10:33] VITALS: BP 138/56
--- NOTE | 2021-11-26 12:02 | NUR ---
PT EATING LUNCH. FAMILY MEMBER AT BEDSIDE. STATES NO PAIN. TELE MONITOR INPLACE. CONTINOUS MONITORING PER ED. FALL/SAFTEY PRECAUTION IN PLACE. IV PATENT. CALL LIGHT WITHIN REACH
[2021-11-26 14:09] VITALS: BP 140/75
--- NOTE | 2021-11-26 17:15 | NUR ---
PT EATING DINNER. NO DISTRESS NOTED. BREATHING EVEN AND UNLABORED. FALL/SAFTEY PRECAUTION SIN PLACE. CALL LIGHT WITHIN REACH. TELE MONITOR IN PLACE, CONTINOUS MONITORING PER ED. IV PATENT.IVF INFUSING PER EMAR.
[2021-11-26 18:26] VITALS: BP 177/150
[2021-11-26 20:10] VITALS: BP 156/62
--- NOTE | 2021-11-26 20:10 | NUR ---
PT RESTING IN BED WATCHIN TV, NO SIGNS OF DISTRESS NOTED, RESP EVEN AND UNLABORED. DISCUSSED POC, VITALS OBTAINED. PT ALERT AND ORIENTED X4, PT MEDICATED PER MAR, SKIN INTACT, PT STATES SHE HAS REDNESS TO PERIAREA, NO REDNESS NOTED, BARRIER CREAM APPLIED, PURE WICK IN PLACE. URINE IS CLEAR YELLOW. TRACE EDEMA TO BLE, ASSESSMENT COMPLETED, CALL LIGHT IN REACH,CONTINUE TO MONITOR.
[2021-11-26 23:57] VITALS: BP 147/70
--- NOTE | 2021-11-27 | NUR ---
PT RESTING IN BED WITH EYES CLOSED, NO SIGNS OF DISTRESS NOTED, RESP EVEN AND UNLABORED. EASILY AROUSED TO VERBAL STIMULI, VITALS OBTAINED, PT VOICES NO NEEDS OR COMPLAINTS AT THIS TIME, CALL LIGHT IN REACH,CONTINUE TO MONITOR.
--- NOTE | 2021-11-27 04:30 | NUR ---
PT RESTING IN BED WATCHING TV, VITALS OBTAINED, ASSISTED PT TO STANDING SCALE WEIGHT OBTAINED, ASSISTED PT TO BSC, SMALL BM, RETURNED TO BED AND NEW PUREWICK PLACED, PT DENIES ANY NEEDS OR COMPLAINTS, CALL LIGHT IN REACH,CONTINUE TO MONITOR.
[2021-11-27 04:33] VITALS: BP 173/73
[2021-11-27 05:24] LABS: HEMATOCRIT 29.1 % (37.0-47.0); HEMOGLOBIN 9.4 g/dl (12.0-16.0); MEAN CELL VOLUME 87.9 fL CALC (80.0-100.0); MEAN CORPUSCULAR HGB 28.4 pG CALC (26.0-32.0); MEAN CORPUSCULAR HGB CONC 32.3 g/dL CAL (32.0-36.0); NEUT# 9.55 thou/uL (2.00-7.15); RED BLOOD COUNT 3.31 mill/uL (4.20-5.60); RED CELL DISTRI WIDTH 13.8 % (11.5-15.5)
[2021-11-27 05:48] LABS: CREATININE 1.5 mg/dL (0.5-1.0); MAGNESIUM 2.6 mg/dL (1.6-2.3); POTASSIUM 4.4 mmol/l (3.5-5.1)
[2021-11-27 07:32] VITALS: BP 129/57
--- NOTE | 2021-11-27 08:00 | NUR ---
PATIENT IS A/OX4, ABLE TO MAKE NEEDS KNOWN TO STAFF. DENIES PAIN AT THIS TIME. 3MM PERRRLA BILATERAL EYES. CLEAR SPEECH. CLEAR TO DIMINISHED LUNG SOUNDS. ACTIVE BOWEL SOUNDS. SOFT NON TENDER ABDOMEN. NO EDEMA PRESENT AT THIS TIME. STRONG PULSES. STRONG AND EQUAL HAND ENDBAND SIZER. REDDNESS ON HER BOTTOM, BUTT PASTE APPLIED TO BOTTOM. USES A PUREWICK. CLEAR YELLOW URINE. NO ARM OR LEG DRIFTS. VITAL SIGNS ARE STABLE. SAFETY MEASURES IN PLACE. CALL LIGHT IN REACH. WILL COTNINUE TO MONITOR PER HOSPITAL'S POLICY.
[2021-11-27 11:17] VITALS: BP 148/62
--- NOTE | 2021-11-27 11:55 | NUR ---
PATIENT HAS AT BEDSIDE, SHE IS SITTING UP EATING LUNCH IN HER CHAIR.
--- NOTE | 2021-11-27 16:00 | NUR ---
PATIENT IS SITTING UP IN BED, AT BEDSIDE
[2021-11-27 16:30] VITALS: BP 158/99
[2021-11-27 18:55] VITALS: BP 150/71
--- NOTE | 2021-11-27 19:29 | NUR ---
PT CALLED ASKING ICE. I ENTEREDTHE ROOM,SHE C/O "TWO PEOPLE RIGHT OUTSIDE THE DOOR JUST TALKING TO EACH OTHER AND COULDN'T EVEN BOTHER TO ANSWER A CALL LIGHT." I EXPLAINED TO HER THAT IT WAS HOUSEKEEPINGTHATSHE WAS SEEING AND THEY ARE NOT ALLOW ANSWER CALL LIGHTS. PT WAS ASSESSED AND NEEDS MET OF ICE PROVIDED. POC AND FLUID RESTRICTION DISCUSSED. SHE WAS PLEASANT AFTER THIS,DENIES ANY OTHER NEEDS UPON ME LEAVING THE ROOM. CALL LIGHT AT SIDE.
--- NOTE | 2021-11-27 20:32 | NUR ---
PT MEDICATED ORDERS PROVIDE. ASSESSMENT COMPLETED PREVIOUSLY. NO S/O DISTRESS. PT REPORTS HAVING AMBULATED TO RESTROOM USING WALKER WITH STANDBY ASSISTANCE OF ADVERTISING SALES CONSULTANT. SAMI DIZZINESS OR DIFFICULTY. CALL LIGHT AT SIDE AND PT VERALIZED THAT SHE WILL CALL NEEDS ARISE. SHE IS EATING ICE CHIPS IN ATTEMPT TO LIMIT PO FLUID INTAKE.
[2021-11-28 00:30] VITALS: BP 182/78
[2021-11-28 03:39] VITALS: BP 172/84
[2021-11-28 04:15] VITALS: BP 158/76
[2021-11-28 05:19] LABS: HEMATOCRIT 28.9 % (37.0-47.0); HEMOGLOBIN 9.5 g/dl (12.0-16.0); MEAN CELL VOLUME 88.1 fL CALC (80.0-100.0); MEAN CORPUSCULAR HGB CONC 32.9 g/dL CAL (32.0-36.0); NEUT# 11.12 thou/uL (2.00-7.15); RED BLOOD COUNT 3.28 mill/uL (4.20-5.60); RED CELL DISTRI WIDTH 14.2 % (11.5-15.5)
[2021-11-28 05:33] LABS: CREATININE 1.4 mg/dL (0.5-1.0); MAGNESIUM 2.2 mg/dL (1.6-2.3); POTASSIUM 4.1 mmol/l (3.5-5.1)
[2021-11-28 06:24] VITALS: BP 151/72
--- NOTE | 2021-11-28 08:01 | NUR ---
RECIEVED REPORT. PT RESTING IN SEMI FOWLERS POSITION. PT A/OX3. ASSESSMENT COMPLETED. RESPIRATIONS EVEN AND UNLABORED ON ROOM AIR.EXPIRATORY WHEEZING NOTED UPON ASCULTATION. HEART RHYTHM NORMAL. BOWEL SOUNDS ACTIVE. #22H LH INFUSING WITH IVF PER ORDER, SITE PATENT. SKIN INTACT. PT DENIES OF ANY PAINS OR DISCOMFORTS AT THIS TIME. ALL SAFTEY PRECAUTIONS ARE IN PLACE WITH CALL LIGHT IN REACH.
[2021-11-28 10:30] VITALS: BP 140/73
[2021-11-28] MEDS ORDERED: LASIX 40 MG TAB40 MG PO (11:14)
--- NOTE | 2021-11-28 11:51 | NUR ---
PT SITTING IN RECYLINER WATCHING TV. RESPIRATIONS EVEN AND UNLBAORED ON ROOM AIR. TELE MONITORING IN PLACE. IV SITE PATENT. PT INFORMED OF DC. VERBLAIZED UNDERSTANDING. ALL SAFTEY PRECAUTIONS ARE IN PLACE WITH CALL LIGHT IN REACH
--- NOTE | 2021-11-28 13:34 | NUR ---
PT EDUCATED IN DC INSTRUCTIONS, NEW MEDICATIONS AND CHANGES TO MEDICATIONS. PT VERBLAIZED UNDERSTANDING. IV REMOVED WITH CATH INTACT. TELE REMOVED, ER INFORMED. PT DENIES OF ANY ADDIITONAL NEEDS.
--- NOTE | 2021-11-28 13:40 | NUR ---
Discharge instructions given. Patient verbalizes understanding of same. Discharged in stable condition via Wheelchair to Home with staff. All belongings sent with pt.
== END 2021-11-28 13:57 | disposition home health service (06) | DRG 292 ==
LOC: ED 19:44 → MS2 11-23 00:58
PROVIDERS: Family Medicine; Internal Medicine; Internal Medicine Nephrology; Nurse Practitioner; ADMIT Internal Medicine; ATTEND Internal Medicine
DX: I13.0 Hypertensive heart and chronic kidney disease with heart failure and stage 1 through stage 4 chronic kidney disease, or unspecified chronic kidney disease (principal); N39.0 Urinary tract infection, site not specified; N17.9 Acute kidney failure, unspecified; E87.1 Hypo-osmolality and hyponatremia; I50.9 Heart failure, unspecified; N18.31 Chronic kidney disease, stage 3a; D63.1 Anemia in chronic kidney disease; I48.0 Paroxysmal atrial fibrillation; E86.0 Dehydration; E86.9 Volume depletion, unspecified; K59.00 Constipation, unspecified; J43.9 Emphysema, unspecified; B96.20 Unspecified Escherichia coli [E. coli] as the cause of diseases classified elsewhere; E03.9 Hypothyroidism, unspecified; E78.5 Hyperlipidemia, unspecified; Z87.891 Personal history of nicotine dependence; Z20.822 Contact with and (suspected) exposure to COVID-19
CPT/HCPCS: G0378; J1756; S0164

== ENCOUNTER 2022-09-14 16:30 | Emergency (ER) | payer MEDICARE, BC ==
[~2022-09-14] VITALS: Ht 165.1 cm; Wt 99.0 kg
[2022-09-14] VITALS (10 sets, daily range): BP systolic 132–164; BP diastolic 64–86
[~2022-09-14 16:30] MED LIST changes: +ASPIRIN81 MG PO; +BACTRIM DS1 TAB PO; +CARVEDILOL12.5 MG PO; +ESTRACE VAG0.1 MG/GM VA; +HYDROCHLOROT25 MG PO; +LASIX 40 MG TAB40 MG PO; +LEVOCETIRIZINE D5 MG PO; +OMEPRAZOLE DR40 MG PO; +TRELEGY ELLIPTA1 AER IN; +VITAMIN B COMPL1 TAB PO; +VITAMIN C1000 MG PO
[2022-09-14 17:06] LABS: BASO% 0.8 % (0-3); EOS% 0.5 % (0-8); HEMATOCRIT 33.2 % (37.0-47.0); HEMOGLOBIN 10.5 g/dl (12.0-16.0); IMMATURE GRANULOCYTES 0.3 % (0.0-5.0); LYMPH% 23.9 % (15-41); MEAN CORPUSCULAR HGB 29.4 pG CALC (26.0-32.0); MEAN CORPUSCULAR HGB CONC 31.6 g/dL CAL (32.0-36.0); MONO% 12.2 % (2-13); NEUT# 3.68 thou/uL (2.00-7.15); NEUT% 62.3 % (42-76); RED BLOOD COUNT 3.57 mill/uL (4.20-5.60)
[2022-09-14 17:25] LABS: ALBUMIN 4.2 g/dL (3.2-5.0); ALKALINE PHOSPHATASE 59 u/l (38-126); ANION GAP 13 (6-22 (CALC)); BILIRUBIN, TOTAL 0.3 mg/dL (0.02-1.3); BUN 25 mg/dL (8-23); BUN/CREATININE RATIO 20 (12-20 (CALC)); CHLORIDE 101 mmol/l (95-108); CREATININE 1.3 mg/dL (0.5-1.0); GFR FOR AFR.AMER. 48 ML/MIN (>=60 (CALC)); GFR OTHER RACES 39 ML/MIN (>=60 (CALC)); POTASSIUM 4.7 mmol/l (3.5-5.1); SGOT/AST 24 u/l (9-36); SODIUM 135 mmol/l (137-146); TOTAL PROTEIN 7.1 g/dL (6.3-8.2)
[2022-09-14 17:28] LABS: CARBON DIOXIDE 26 mmol/l (22-30)
== END 2022-09-14 19:38 | disposition home or self-care (01) ==
LOC: ED 16:30
PROVIDERS: Family Medicine
PROC: 0HQ0XZZ Repair Scalp Skin, External Approach (ICD-10-PCS; principal; 2022-09-14)
DX: S01.01XA Laceration without foreign body of scalp, initial encounter (principal); S06.0X0A Concussion without loss of consciousness, initial encounter; I10 Essential (primary) hypertension; I48.91 Unspecified atrial fibrillation; W01.0XXA Fall on same level from slipping, tripping and stumbling without subsequent striking against object, initial encounter; Y93.G3 Activity, cooking and baking; Y92.000 Kitchen of unspecified non-institutional (private) residence as the place of occurrence of the external cause

== ENCOUNTER 2023-04-03 12:36 | Inpatient (IN) | payer MEDICARE, BC ==
[~2023-04-03] VITALS: Ht 165.1 cm; Wt 101.9 kg
[~2023-04-03 12:36] MED LIST changes: +CELEXA40 M1 PO; -CITALOPRAM40 M1 PO
--- NOTE | 2023-04-03 13:45 | NUR ---
PT TO ER TRIAGE VIA WHEELCHAIR.
--- NOTE | 2023-04-03 14:00 | NUR ---
LAB DRAWN BY CARPET INSTALLATION SPECIALIST.
[2023-04-03 14:11] LABS: BASO% 0.4 % (0-3); EOS% 1.1 % (0-8); HEMATOCRIT 30.6 % (37.0-47.0); HEMOGLOBIN 9.6 g/dl (12.0-16.0); IMMATURE GRANULOCYTES 0.5 % (0.0-5.0); LYMPH% 17.3 % (15-41); MEAN CORPUSCULAR HGB 29.8 pG CALC (26.0-32.0); MEAN CORPUSCULAR HGB CONC 31.4 g/dL CAL (32.0-36.0); MONO% 12.3 % (2-13); NEUT# 5.04 thou/uL (2.00-7.15); NEUT% 68.4 % (42-76); RED BLOOD COUNT 3.22 mill/uL (4.20-5.60)
[2023-04-03 14:34] LABS: ALBUMIN 4.3 g/dL (3.2-5.0); BILIRUBIN, TOTAL 0.4 mg/dL (0.02-1.3); CREATININE 4.2 mg/dL (0.5-1.0); TOTAL PROTEIN 7.4 g/dL (6.3-8.2)
[2023-04-03 15:02] LABS: POTASSIUM 5.4 mmol/l (3.5-5.1)
--- NOTE | 2023-04-03 15:30 | NUR ---
PENDING RADIOLOGY RESULTS. PT MADE AWARE. VSS.
[2023-04-03 15:35] LABS: URINE BILIRUBIN - DIPSTICK Negative (NEGATIVE); URINE BLOOD DIPSTICK Negative (NEGATIVE); URINE GLUCOSE - DIPSTICK Negative (NEGATIVE); URINE KETONE Negative (NEGATIVE); URINE LEUK ESTERASE Negative (NEGATIVE); URINE NITRITE - DIPSTICK Negative (Negative); URINE PH 6.5 (4.5-8.0); URINE PROTEIN - DIPSTICK Trace mg/dL (NEG-TRACE); URINE SPECIFIC GRAVITY 1.015; URINE UROBILINOGEN - DIPSTICK 0.2 E.U./dL (0.2)
[2023-04-03 15:40] LABS: URINE COLOR Yellow
--- NOTE | 2023-04-03 17:24 | NUR ---
IV ESTABLISHED. PT TOLERATED WE.. IV FLUIDS STARTED.
--- NOTE | 2023-04-03 18:52 | NUR ---
VSS. PENDING ADMISSION.
--- NOTE | 2023-04-03 19:09 | NUR ---
REPORT RECEIEVED FROM Gilma COOK RN
--- NOTE | 2023-04-03 19:32 | NUR ---
REPORT GIVEN TO Gian HASSAN RN
--- NOTE | 2023-04-03 20:10 | NUR ---
REPORT RECIEVED FROM BRENDA Interiano PT RESTING IN BED. NO ACUTE DISTRESS NOTED.
--- NOTE | 2023-04-03 21:00 | NUR ---
PT UP TO BEDSIDE COMMODE.
--- NOTE | 2023-04-03 21:21 | NUR ---
REPORT CALLED AND GIVEN TO JUANCHO ON MS2. PT BEING TRANSPORTED VIA BED.
--- NOTE | 2023-04-03 21:23 | NUR ---
PT MED REC UNABLE TO BE OBTAINED. THIS NURSE TRIED TO READ ALREADY DOCUMENTED MED LIST FROM PREVIOUS TO VISIT AND PT STATES. "I DONT KNOW, MAYBE" PT STATES HER LIST IS AT HOME AND HER CAN BRING IT UP TO NURSE IN THE [facility].
--- NOTE | 2023-04-03 21:35 | NUR ---
PATIENT ADMITTED TO [facility] VIA STRETCHER. ALERT AND ABLE TO MAKE NEEDS KNOWN. AMBULATED SELF TO SCALE THEN BED. ASSESSMENT COMPLETE. NO DISTRESS NOTED. NO COMPLAINTS OF PAIN. SKIN APPEARS INTACT. ORIENTED PATIENT TO ROOM, CALL DIETZ AND SURROUNDINGS. FRESH WATER AT BEDSIDE. MEAL PROVIDED BY PBX TECHNICIAN. BED IN LOW POSITION. CALL DIETZ IN REACH.
[2023-04-03 21:41] VITALS: BP 130/47
[2023-04-03 21:43] VITALS: BP 130/64
[2023-04-04 00:05] VITALS: BP 120/61
--- NOTE | 2023-04-04 00:53 | NUR ---
PATIENT REMAINS RESTING IN BED. NO DISTRESS NOTED. DENIES NEEDING ANYTHING AT THIS TIME. BED REMAINS IN LOW POSITION. CALL DIETZ IN REACH.
[2023-04-04 04:28] VITALS: BP 120/54
--- NOTE | 2023-04-04 04:40 | NUR ---
PATIENT HAD INCONTINENCE OF URINE. DANIEL CARE PROVIDED. NEW GOWN APPLIED. DENIES NEEDING ANYTHING. BED IN LOW POSITION. CALL DIETZ IN REACH.
[2023-04-04 06:36] LABS: BASO% 0.7 % (0-3); HEMATOCRIT 27.4 % (37.0-47.0); HEMOGLOBIN 8.7 g/dl (12.0-16.0); LYMPH% 19.7 % (15-41); MEAN CELL VOLUME 94.8 fL CALC (80.0-100.0); MEAN CORPUSCULAR HGB 30.1 pG CALC (26.0-32.0); MEAN CORPUSCULAR HGB CONC 31.8 g/dL CAL (32.0-36.0); MONO% 13.2 % (2-13); NEUT# 3.95 thou/uL (2.00-7.15); NEUT% 64.4 % (42-76); RED BLOOD COUNT 2.89 mill/uL (4.20-5.60)
[2023-04-04 06:37] VITALS: BP 118/56
[2023-04-04 07:04] LABS: ALBUMIN 3.7 g/dL (3.2-5.0); BILIRUBIN, TOTAL 0.5 mg/dL (0.02-1.3); CHOLESTEROL HDL RATIO 4.1 (<4.4 (CALC)); CREATININE 3.8 mg/dL (0.5-1.0); POTASSIUM 4.7 mmol/l (3.5-5.1); TOTAL PROTEIN 6.3 g/dL (6.3-8.2)
--- NOTE | 2023-04-04 08:00 | NUR ---
PT IN BED WITH HOB UP, PT IS ALERT AND ORIENTED X 3. PT HAS NO C/O PAIN AT THIS TIME. PT HAS TELE ON WITH ALL LEADS ATTACHED. IV SITE TO LAC CLEAN AND INTACT WITH NS @ 80 ML/HR. PT BREATHING IS NON LABORED AND LUNGS CLEAR THROUGHOUT. PT ABD IS SOFT WITH HYPO ACTIVE BS. PUREWICK PLACED DUE TO PT NOT BEING ABLE TO GET TO BEDSIDE COMMODE FAST ENOUGH, PT STATES SHE KEEPS HAVING ACCIDENTS. PT HAS CALL LIGHT WITHIN REACH AND SAFETY MEAURES IN PLACE AT THIS TIME.
[2023-04-04 11:08] VITALS: BP 102/32
--- NOTE | 2023-04-04 12:00 | NUR ---
PT SITTING UP IN CHAIR, PT HAS NO C/O PAIN AT THIS TIME. PT HAS NO CHANGE IN STATUS AT THIS TIME.
[2023-04-04] MEDS ORDERED: D3 ULTRA ST5000 UNIT PO (13:58)
[2023-04-04] MEDS ORDERED: NUCALA100 MG SC (14:09)
[2023-04-04] MEDS ORDERED: CALCIUM 600+D31 TAB PO (14:11)
--- NOTE | 2023-04-04 16:00 | NUR ---
PT IN BED WITH HOB WATCHING TV, PT HAS FAMILY AT [facility]. PT HAS NO C/O PAIN AT THIS TIME. PT HAS CALL LIGHT WITHIN REACH AT THIS TIME.
[2023-04-04 16:26] VITALS: BP 143/54
[2023-04-04 19:19] VITALS: BP 144/58
--- NOTE | 2023-04-04 21:00 | NUR ---
PT RESTING IN BED WATCHING TV, NO SIGNS OF DISTRESS NOTED, RESP EVEN AND UNLABORED. PT ALERT AND ORIENTED X3, NO EDEMA. DISCUSSED POC, VERBALIZED UNDERSTANDING. PT MEDICATED PER MAR, VOICES NO NEEDS OR COMPLAINTS AT THIS TIME. ASSESSMENT REVIEW COMPLETED, CALL LIGHT IN REACH,CONTINUE TO MONITOR.
--- NOTE | 2023-04-05 00:21 | NUR ---
PT RESTING IN BED NO SIGNS OF DISTRESS NOTED, RESP EVEN AND UNLABORED. PT C/O ITCHYNESS, STATES IT IS CHRONIC, SHE NORMALLY TAKES 50MG OF BENADRYL QHS, BARRIER CREAM APPLIED FOR COMFORT TO R GLUTEAL FOLD. WILL REPORT TO AM NURSE FOR MD TO ACKNOWLEDGE. VITALS OBTAINED, CALL LIGHT IN REACH,CONTINUE TO MONITOR.
[2023-04-05 00:22] VITALS: BP 123/50
--- NOTE | 2023-04-05 03:59 | NUR ---
PT CALLED FOR ASSISTANCE TO BSC TO ATTEMPT BM. PT TOLERATED WELL. PT STATES SHE WILL CALL WHEN SHE IS DONE. CALL LIGHT IN REACH,CONTINUE TO MONITOR.
[2023-04-05 04:13] VITALS: BP 123/58
[2023-04-05 05:50] LABS: BASO% 0.5 % (0-3); EOS% 1.1 % (0-8); HEMOGLOBIN 8.6 g/dl (12.0-16.0); IMMATURE GRANULOCYTES 0.3 % (0.0-5.0); LYMPH% 22.1 % (15-41); MEAN CELL VOLUME 96.8 fL CALC (80.0-100.0); MEAN CORPUSCULAR HGB 30.8 pG CALC (26.0-32.0); MEAN CORPUSCULAR HGB CONC 31.9 g/dL CAL (32.0-36.0); MONO% 12.6 % (2-13); NEUT# 3.98 thou/uL (2.00-7.15); NEUT% 63.4 % (42-76); RED BLOOD COUNT 2.79 mill/uL (4.20-5.60)
[2023-04-05 06:18] LABS: ALBUMIN 3.8 g/dL (3.2-5.0); BILIRUBIN, TOTAL 0.4 mg/dL (0.02-1.3); CREATININE 3.5 mg/dL (0.5-1.0); TOTAL PROTEIN 6.6 g/dL (6.3-8.2)
[2023-04-05 06:31] LABS: POTASSIUM 5.2 mmol/l (3.5-5.1)
[2023-04-05 07:00] VITALS: BP 149/60
--- NOTE | 2023-04-05 08:00 | NUR ---
PT IN BED WITH HOB UP EATING BREAKFAST. PT IS ALERT AND OREIENTED X 3. PT HAS NO C/O PAIN AT THIS TIME. PT TELE ON WITH ALL LEADS ATTACHED. IV SITE TP LAC CLEAN AND INTACT WITH NS @ 50 ML/HR INFUSING. PT LUNGS CLEAR THROUGHOUT AND BREATHING IS NON LABORED. PT ABD IS SOFT WITH ACTIVE BS. PT USING PUREWICK AND DRAINING CLEAR, YELLOW URINE. PT HAS BEDSIDE COMMODE WELL FOR TOILETING NEEDS. PT HAS CALL LIGHT WITHIN REACH AND SAFETY MEASURES IN PLACE AT THIS TIME.
[2023-04-05 12:00] VITALS: BP 131/51
--- NOTE | 2023-04-05 12:00 | NUR ---
PT SITTING UP ON BED IN HIGH FOWLERS, EATING LUNCH. PT HAS NO C/O PAIN AT THIS TIME. PT HAS NO CHANGE IN STATUS AT THIS TIME. PT HAS CALL LIGHT WITHIN REACH AND SAFETY MEASURES IN PLACE AT THIS TIME.
[2023-04-05 15:52] VITALS: BP 109/50
--- NOTE | 2023-04-05 16:00 | NUR ---
PT IN BED WITH HOB UP, WATCHING TV. PT HAS NO C/O PAIN AT THIS TIME. PT IN RM. PT HAS NO CHANGE IN STATUS. PT HAS CALL LIGHT WITHIN REACH AND SAFETY MEASURES IN PLACE AT THIS TIME.
--- NOTE | 2023-04-05 20:00 | NUR ---
RECEIVED REPORT FROM NURSE JOANNA. RYAN RESTING IN BED, NOT IN DISTRESS, APPEAR PALE, DENIES PAIN AT THIS TIME, IV ON LAC NS @ 50 INFUSING WELL, HOOKED ON TLEMETRY PACED 63, PATINET C/O ITCHING UPPER EXTREMITIES, NO REDNESS NOTED. WILL NBOTIFY RAG INSPECTOR.
[2023-04-05 20:31] VITALS: BP 147/61
--- NOTE | 2023-04-06 | NUR ---
RYAN RESTING IN BED, EYES CLOSED, NEW PUREWICK IN PLACED, CALL LIGHT IN REACH, BREATHING EVEN UNLABORED.
[2023-04-06 00:29] VITALS: BP 142/64
[2023-04-06 04:37] VITALS: BP 158/63
--- NOTE | 2023-04-06 05:01 | NUR ---
PATIENT RESTING IN BED, PATIENT WEIGHED STANDING SCALE, AND BACK TO BED, CALL LIGHT IN REACH.
[2023-04-06 05:57] LABS: BASO% 0.4 % (0-3); EOS% 0.9 % (0-8); HEMATOCRIT 27.7 % (37.0-47.0); HEMOGLOBIN 8.5 g/dl (12.0-16.0); IMMATURE GRANULOCYTES 1.3 % (0.0-5.0); LYMPH% 18.1 % (15-41); MEAN CELL VOLUME 96.5 fL CALC (80.0-100.0); MEAN CORPUSCULAR HGB 29.6 pG CALC (26.0-32.0); MEAN CORPUSCULAR HGB CONC 30.7 g/dL CAL (32.0-36.0); MONO% 12.3 % (2-13); NEUT# 4.64 thou/uL (2.00-7.15); RED BLOOD COUNT 2.87 mill/uL (4.20-5.60); RED CELL DISTRI WIDTH 12.9 % (11.5-15.5)
[2023-04-06 06:10] LABS: ALBUMIN 3.9 g/dL (3.2-5.0); BILIRUBIN, TOTAL 0.4 mg/dL (0.02-1.3); CREATININE 3.2 mg/dL (0.5-1.0); MAGNESIUM 1.9 mg/dL (1.6-2.3); POTASSIUM 5.1 mmol/l (3.5-5.1); TOTAL PROTEIN 6.7 g/dL (6.3-8.2)
[2023-04-06 06:34] VITALS: BP 158/64
--- NOTE | 2023-04-06 08:00 | NUR ---
PT SITTING UP IN CHAIR AT BEDSIDE. PT IS ALERT AND OREINTED X 3, PT C/O HEADACHE AND TYLENOL GIVEN ORDRED. PT TELE ON WITH ALL LEADS ATTACHED. PT IV SITE TO LAC CLEAN AND INTACT WITH NS @ 50 ML/HR INFUSING. PT LUNGS CLEAR AND BREATHING NON LABORED. ABD IS SOFT WITH ACTIVE BS. PT HAS PUREWICK IN PLACE DRAINING CLEAR YELLOW URINE. PT HAS CALL LIGHT WITHIN REACH AND SAFETY MESURES IN PLACE AT THIS TIME.
[2023-04-06 11:36] VITALS: BP 156/64
[2023-04-06] MEDS ORDERED: NORVASC PO (11:58)
--- NOTE | 2023-04-06 12:00 | NUR ---
PT SITTING UP IN BED EATING LUNCH. PT HAS NO C/O PAIN AT THIS TIME. PT HAS NO CHANGE IN STATUS AT THIS TIME. PT HAS CALL LIGHT WIHTIN REACH AND SAFETY MEASURES IN PLACE AT THIS TIME.
--- NOTE | 2023-04-06 13:59 | NUR ---
Discharge instructions given. Patient verbalizes understanding of same. Discharged in stable condition via Wheelchair to Home with family. All belongings sent with pt.
== END 2023-04-06 14:00 | disposition home or self-care (01) | DRG 684 ==
LOC: ED 12:36 → ED-I 16:30 → ED 18:59 → MS2 19:00
PROVIDERS: Family Medicine; Nurse Practitioner Family; ADMIT Student in an Organized Health Care Education/Training Program; ATTEND Student in an Organized Health Care Education/Training Program
DX: N17.9 Acute kidney failure, unspecified (principal); E86.9 Volume depletion, unspecified; E87.5 Hyperkalemia; I12.9 Hypertensive chronic kidney disease with stage 1 through stage 4 chronic kidney disease, or unspecified chronic kidney disease; N18.31 Chronic kidney disease, stage 3a; D63.1 Anemia in chronic kidney disease; I48.0 Paroxysmal atrial fibrillation; J43.9 Emphysema, unspecified; E03.9 Hypothyroidism, unspecified; Z87.891 Personal history of nicotine dependence
CPT/HCPCS: Q5106 EC

== ENCOUNTER 2023-11-05 17:20 | Emergency (ER) | payer MEDICARE, BC ==
[~2023-11-05] VITALS: Ht 165.1 cm; Wt 93.8 kg
[~2023-11-05 17:20] MED LIST changes: +BUDESONID2 IN; +CALCIUM 600+D31 TAB PO; +CORDARONE/200 MG/TAB PO; +D3 ULTRA ST5000 UNIT PO; +NORVASC PO; +NUCALA100 MG SC; +VITAMIN B-12500 MCG PO
[2023-11-05 17:32] VITALS: BP 129/60
[2023-11-05 17:46] VITALS: BP 130/55
[2023-11-05] MEDS ORDERED: predniSONE 20 MG/TAB PO ONE (17:50)
[2023-11-05 18:00] VITALS: BP 111/56
[2023-11-05 18:15] VITALS: BP 131/58
[2023-11-05 18:31] VITALS: BP 136/61
[2023-11-05] MEDS ORDERED: PREDNISONE20 MG PO (18:39)
[2023-11-05 18:46] VITALS: BP 136/61
== END 2023-11-05 19:01 | disposition home or self-care (01) ==
LOC: ED 17:20
DX: L30.9 Dermatitis, unspecified (principal); I12.9 Hypertensive chronic kidney disease with stage 1 through stage 4 chronic kidney disease, or unspecified chronic kidney disease; N18.9 Chronic kidney disease, unspecified; I48.91 Unspecified atrial fibrillation; J44.9 Chronic obstructive pulmonary disease, unspecified; E03.9 Hypothyroidism, unspecified; Z99.81 Dependence on supplemental oxygen; Z95.0 Presence of cardiac pacemaker

== ENCOUNTER 2023-12-24 10:02 | Inpatient (IN) | payer MEDICARE, BC ==
[~2023-12-24] VITALS: Ht 165.1 cm; Wt 91.2 kg
[2023-12-24] VITALS (21 sets, daily range): BP systolic 109–145; BP diastolic 40–87
[~2023-12-24 10:02] MED LIST changes: +PREDNISONE20 MG PO
[2023-12-24 10:42] LABS: BASO% 0.6 % (0-3); HEMATOCRIT 31.3 % (37.0-47.0); HEMOGLOBIN 9.2 g/dl (12.0-16.0); IMMATURE GRANULOCYTES 0.2 % (0.0-5.0); LYMPH% 12.9 % (15-41); MEAN CORPUSCULAR HGB 29.4 pG CALC (26.0-32.0); MEAN CORPUSCULAR HGB CONC 29.4 g/dL CAL (32.0-36.0); MONO% 15.2 % (2-13); NEUT# 3.41 thou/uL (2.00-7.15); NEUT% 70.1 % (42-76); RED BLOOD COUNT 3.13 mill/uL (4.20-5.60); RED CELL DISTRI WIDTH 15.3 % (11.5-15.5)
[2023-12-24 10:48] LABS: ALBUMIN 4.1 g/dL (3.2-5.0); BILIRUBIN, TOTAL 0.7 mg/dL (0.02-1.3); CREATININE 2.2 mg/dL (0.5-1.0); TOTAL PROTEIN 7.6 g/dL (6.3-8.2)
[2023-12-24 10:54] LABS: INTERNATIONAL NORMALIZED RATIO 1.3 RATIO (0.7-1.3)
[2023-12-24 10:55] LABS: PROTHROMBIN TIME 11.9 SECONDS (9.0-12.5)
[2023-12-24 11:04] LABS: POTASSIUM 5.4 mmol/l (3.5-5.1)
[2023-12-24 11:07] LABS: URINE BILIRUBIN - DIPSTICK Negative (NEGATIVE); URINE BLOOD DIPSTICK Negative (NEGATIVE); URINE GLUCOSE - DIPSTICK Negative (NEGATIVE); URINE KETONE Negative (NEGATIVE); URINE LEUK ESTERASE Negative (NEGATIVE); URINE NITRITE - DIPSTICK Negative (Negative); URINE PH 5.5 (4.5-8.0); URINE PROTEIN - DIPSTICK Negative (NEG-TRACE); URINE UROBILINOGEN - DIPSTICK 0.2 E.U./dL (0.2)
[2023-12-24 11:12] LABS: URINE COLOR Yellow
[2023-12-24] MEDS ORDERED: FUROSEMIDE 40 MG/4 ML SDV IV ONE ×2 (11:15→11:40)
[2023-12-24] MEDS ORDERED: MAGNESIUM HYDROXIDE 30 ML UDC PO PRN (13:20)
[2023-12-24] MEDS ORDERED: ACETAMINOPHEN 325 MG/TAB PO PRN (13:20)
[2023-12-24] MEDS ORDERED: IPRATROPIUM-Albuterol 0.5MG-2.5MG/3 ML NEB PRN (13:35)
[2023-12-24] MEDS ORDERED: IPRATROPIUM BR0.02 % IN (15:55)
[2023-12-24] MEDS ORDERED: FLECAINIDE100 MG PO (15:56)
[2023-12-24] MEDS ORDERED: FUROSEMIDE 40 MG/4 ML SDV IV SCH (17:00)
[2023-12-24] MEDS ORDERED: FLECAINIDE ACETATE 50 MG TAB PO SCH (21:00)
[2023-12-24] MEDS ORDERED: MONTELUKAST SODIUM 10 MG/TAB PO SCH (21:00)
[2023-12-24] MEDS ORDERED: DiphenhydrAMINE HCL 50 MG/ML SDV IV PRN (23:00)
[2023-12-25] VITALS (8 sets, daily range): BP systolic 109–152; BP diastolic 42–67
[2023-12-25 05:35] LABS: BASO% 0.3 % (0-3); EOS% 0.5 % (0-8); HEMATOCRIT 31.1 % (37.0-47.0); HEMOGLOBIN 9.2 g/dl (12.0-16.0); IMMATURE GRANULOCYTES 0.3 % (0.0-5.0); LYMPH% 9.8 % (15-41); MEAN CELL VOLUME 100.3 fL CALC (80.0-100.0); MEAN CORPUSCULAR HGB 29.7 pG CALC (26.0-32.0); MEAN CORPUSCULAR HGB CONC 29.6 g/dL CAL (32.0-36.0); MONO% 13.1 % (2-13); NEUT# 4.56 thou/uL (2.00-7.15); RED BLOOD COUNT 3.1 mill/uL (4.20-5.60); RED CELL DISTRI WIDTH 15.1 % (11.5-15.5)
[2023-12-25] MEDS ORDERED: LEVOTHYROXINE SODIUM 75 MCG/TAB PO SCH (06:00)
[2023-12-25 06:03] LABS: ALBUMIN 3.5 g/dL (3.2-5.0); BILIRUBIN, TOTAL 0.6 mg/dL (0.02-1.3); CHOLESTEROL HDL RATIO 2.1 (<4.4 (CALC)); CREATININE 2.2 mg/dL (0.5-1.0); MAGNESIUM 1.8 mg/dL (1.6-2.3); POTASSIUM 4.8 mmol/l (3.5-5.1); TOTAL PROTEIN 6.5 g/dL (6.3-8.2)
[2023-12-25] MEDS ORDERED: AMIODARONE 200 MG/TAB PO SCH (09:00)
[2023-12-25] MEDS ORDERED: CARVEDILOL 25 MG/TAB PO SCH (09:00)
[2023-12-25] MEDS ORDERED: PANTOPRAZOLE SODIUM Sesquihydr 40 MG/TAB PO SCH (09:00)
[2023-12-25] MEDS ORDERED: AZITHROMYCIN 500 MG in SODIUM CHLORIDE 0.9% 250 ML IV SCH (10:15)
[2023-12-25] MEDS ORDERED: ZYRTEC10 MG PO (10:51)
[2023-12-25] MEDS ORDERED: PRENATAL FORTE PO (10:52)
[2023-12-25] MEDS ORDERED: DOXYCYCLINE HYCLATE 100 MG in SODIUM CHLORIDE 0.9% 100 ML IV SCH (12:00)
[2023-12-26] VITALS (8 sets, daily range): BP systolic 106–121; BP diastolic 38–56
[2023-12-26 05:43] LABS: BASO% 0.4 % (0-3); EOS% 0.9 % (0-8); HEMATOCRIT 31.5 % (37.0-47.0); HEMOGLOBIN 9.2 g/dl (12.0-16.0); IMMATURE GRANULOCYTES 0.4 % (0.0-5.0); MEAN CELL VOLUME 100.6 fL CALC (80.0-100.0); MEAN CORPUSCULAR HGB 29.4 pG CALC (26.0-32.0); MEAN CORPUSCULAR HGB CONC 29.2 g/dL CAL (32.0-36.0); MONO% 15.2 % (2-13); NEUT# 3.8 thou/uL (2.00-7.15); NEUT% 71.1 % (42-76); RED BLOOD COUNT 3.13 mill/uL (4.20-5.60); RED CELL DISTRI WIDTH 15.3 % (11.5-15.5)
[2023-12-26 05:50] LABS: ALBUMIN 3.6 g/dL (3.2-5.0); BILIRUBIN, TOTAL 0.6 mg/dL (0.02-1.3); CREATININE 2.3 mg/dL (0.5-1.0); MAGNESIUM 1.4 mg/dL (1.6-2.3); POTASSIUM 4.1 mmol/l (3.5-5.1); TOTAL PROTEIN 6.5 g/dL (6.3-8.2)
[2023-12-26] MEDS ORDERED: MAGNESIUM SULFATE HEPTAHYDRATE 100 ML IV SCH (09:00)
[2023-12-27] VITALS (9 sets, daily range): BP systolic 98–138; BP diastolic 41–79
[2023-12-27 05:55] LABS: ALBUMIN 3.5 g/dL (3.2-5.0); BILIRUBIN, TOTAL 0.6 mg/dL (0.02-1.3); POTASSIUM 3.8 mmol/l (3.5-5.1); TOTAL PROTEIN 6.5 g/dL (6.3-8.2)
[2023-12-27 06:01] LABS: MAGNESIUM 2.1 mg/dL (1.6-2.3)
[2023-12-27] MEDS ORDERED: FUROSEMIDE 40 MG/TAB PO SCH (09:00)
[2023-12-28 04:35] VITALS: BP 109/67
[2023-12-28 06:30] LABS: BASO% 0.5 % (0-3); EOS% 0.9 % (0-8); HEMATOCRIT 35.1 % (37.0-47.0); HEMOGLOBIN 10.8 g/dl (12.0-16.0); IMMATURE GRANULOCYTES 0.2 % (0.0-5.0); LYMPH% 11.5 % (15-41); MEAN CELL VOLUME 96.2 fL CALC (80.0-100.0); MEAN CORPUSCULAR HGB 29.6 pG CALC (26.0-32.0); MEAN CORPUSCULAR HGB CONC 30.8 g/dL CAL (32.0-36.0); MONO% 15.6 % (2-13); NEUT# 4.11 thou/uL (2.00-7.15); NEUT% 71.3 % (42-76); RED BLOOD COUNT 3.65 mill/uL (4.20-5.60); RED CELL DISTRI WIDTH 15.3 % (11.5-15.5)
[2023-12-28 06:42] LABS: ALBUMIN 3.4 g/dL (3.2-5.0); BILIRUBIN, TOTAL 0.6 mg/dL (0.02-1.3); CREATININE 1.9 mg/dL (0.5-1.0); MAGNESIUM 1.7 mg/dL (1.6-2.3); POTASSIUM 3.6 mmol/l (3.5-5.1); TOTAL PROTEIN 6.4 g/dL (6.3-8.2)
[2023-12-28 07:01] VITALS: BP 113/51
[2023-12-28 10:18] VITALS: BP 128/57
[2023-12-28] MEDS ORDERED: COZAAR50 MG PO (10:18)
[2023-12-28] MEDS ORDERED: VIBRAMYCIN100 M2 PO (10:24)
[2023-12-28] MEDS ORDERED: LASIX 40 MG TAB40 MG PO (10:25)
== END 2023-12-28 13:53 | DRG 193 ==
LOC: ED 10:02 → ED-I 13:00 → ED 13:02 → MS2 13:03
PROVIDERS: Family Medicine; Nurse Practitioner Family; ADMIT Student in an Organized Health Care Education/Training Program; ATTEND Student in an Organized Health Care Education/Training Program
DX: J18.9 Pneumonia, unspecified organism (principal); I50.43 Acute on chronic combined systolic (congestive) and diastolic (congestive) heart failure; I13.0 Hypertensive heart and chronic kidney disease with heart failure and stage 1 through stage 4 chronic kidney disease, or unspecified chronic kidney disease; N17.9 Acute kidney failure, unspecified; N18.4 Chronic kidney disease, stage 4 (severe); I48.0 Paroxysmal atrial fibrillation; D63.1 Anemia in chronic kidney disease; E03.9 Hypothyroidism, unspecified; J43.9 Emphysema, unspecified; E83.42 Hypomagnesemia; E87.5 Hyperkalemia; E66.9 Obesity, unspecified; Z68.34 Body mass index [BMI] 34.0-34.9, adult; Z95.0 Presence of cardiac pacemaker; Z87.891 Personal history of nicotine dependence; Z99.81 Dependence on supplemental oxygen
CPT/HCPCS: J3475

== ENCOUNTER 2024-03-27 09:29 | Emergency (ER) | payer MEDICARE, BC ==
[~2024-03-27] VITALS: Ht 165.1 cm; Wt 81.6 kg
[2024-03-27] VITALS (34 sets, daily range): BP systolic 107–152; BP diastolic 43–102
[~2024-03-27 09:29] MED LIST changes: +COZAAR50 MG PO; +FLECAINIDE100 MG PO; +IPRATROPIUM BR0.02 % IN; +PRENATAL FORTE PO; +VIBRAMYCIN100 M2 PO; +ZYRTEC10 MG PO
[2024-03-27 10:31] LABS: BASO% 0.5 % (0-3); EOS% 0.8 % (0-8); HEMATOCRIT 31.3 % (37.0-47.0); IMMATURE GRANULOCYTES 0.3 % (0.0-5.0); LYMPH% 17.3 % (15-41); MEAN CELL VOLUME 98.7 fL CALC (80.0-100.0); MEAN CORPUSCULAR HGB 28.4 pG CALC (26.0-32.0); MEAN CORPUSCULAR HGB CONC 28.8 g/dL CAL (32.0-36.0); MONO% 11.9 % (2-13); NEUT# 2.69 thou/uL (2.00-7.15); NEUT% 69.2 % (42-76); RED BLOOD COUNT 3.17 mill/uL (4.20-5.60); RED CELL DISTRI WIDTH 14.3 % (11.5-15.5)
[2024-03-27 10:47] LABS: ALBUMIN 3.8 g/dL (3.2-5.0); ALKALINE PHOSPHATASE 57 u/l (38-126); BILIRUBIN, TOTAL 0.7 mg/dL (0.02-1.3); BUN 31 mg/dL (8-23); BUN/CREATININE RATIO 15 (12-20 (CALC)); CARBON DIOXIDE 31 mmol/l (22-30); CHLORIDE 103 mmol/l (95-108); CREATININE 2.1 mg/dL (0.5-1.0); ESTIMATED GFR 23 ML/MIN (>=90 (CALC)); LIPASE 32 u/l (23-300); SGOT/AST 22 u/l (9-36); SODIUM 139 mmol/l (137-146); TOTAL PROTEIN 6.9 g/dL (6.3-8.2)
[2024-03-27 10:52] LABS: ANION GAP 10 (6-22 (CALC)); POTASSIUM 4.6 mmol/l (3.5-5.1)
[2024-03-27] MEDS ORDERED: AZITHROMYCIN 250 MG/TAB PO ONE (11:20)
[2024-03-27] MEDS ORDERED: cefTRIAXone SODIUM 2 GM in SODIUM CHLORIDE 0.9% 100 ML IV ONE (11:20)
[2024-03-27 11:36] LABS: TSH, 3RD GENERATION 2.69 uIU/mL (0.47 - 4.68)
[2024-03-27] MEDS ORDERED: Levofloxacin 750 mg Premix 150 ML IV ONE (13:25)
== END 2024-03-27 20:05 | disposition short-term general hospital (02) ==
LOC: ED 09:29 → ED-I 12:35 → ED 20:05
PROVIDERS: Family Medicine
DX: J18.9 Pneumonia, unspecified organism (principal); J91.8 Pleural effusion in other conditions classified elsewhere; J44.0 Chronic obstructive pulmonary disease with (acute) lower respiratory infection; I13.0 Hypertensive heart and chronic kidney disease with heart failure and stage 1 through stage 4 chronic kidney disease, or unspecified chronic kidney disease; N18.9 Chronic kidney disease, unspecified; I50.9 Heart failure, unspecified; I48.91 Unspecified atrial fibrillation; J43.9 Emphysema, unspecified; E03.9 Hypothyroidism, unspecified; Z99.81 Dependence on supplemental oxygen; Z95.0 Presence of cardiac pacemaker; Z20.822 Contact with and (suspected) exposure to COVID-19
CPT/HCPCS: J0696

== ENCOUNTER 2024-06-15 01:17 | Inpatient (IN) | payer MEDICARE, BC ==
[2024-06-15] VITALS (16 sets, daily range): BP systolic 92–120; BP diastolic 42–62
[~2024-06-15] VITALS: Ht 165.1 cm; Wt 88.9 kg
--- NOTE | 2024-06-15 01:17 | NUR ---
PT TO ER ROOM 9 VIA EMS
[2024-06-15] MEDS ORDERED: KETOROLAC TROMETHAMINE 30 MG/ML SDV IV ONE (01:25)
[2024-06-15] MEDS ORDERED: ASPIRIN 81 MG/TAB PO ONE (01:25)
[2024-06-15] MEDS ORDERED: ACETAMINOPHEN 500 MG TAB PO ONE (01:25)
[2024-06-15] MEDS ORDERED: MORPHINE SULFATE 4 MG/ML VIAL IV ONE (01:25)
[2024-06-15 01:45] LABS: BASO% 0.3 % (0-3); EOS% 0.3 % (0-8); HEMATOCRIT 26.3 % (37.0-47.0); HEMOGLOBIN 7.7 g/dl (12.0-16.0); LYMPH% 8.1 % (15-41); MEAN CELL VOLUME 93.9 fL CALC (80.0-100.0); MEAN CORPUSCULAR HGB 27.5 pG CALC (26.0-32.0); MEAN CORPUSCULAR HGB CONC 29.3 g/dL CAL (32.0-36.0); NEUT# 4.65 thou/uL (2.00-7.15); NEUT% 80.3 % (42-76); RED BLOOD COUNT 2.8 mill/uL (4.20-5.60); RED CELL DISTRI WIDTH 15.2 % (11.5-15.5)
[2024-06-15 01:56] LABS: ALBUMIN 3.7 g/dL (3.2-5.0); ALKALINE PHOSPHATASE 58 u/l (38-126); ANION GAP 10 (6-22 (CALC)); BILIRUBIN, TOTAL 0.8 mg/dL (0.02-1.3); BUN 37 mg/dL (8-23); BUN/CREATININE RATIO 16 (12-20 (CALC)); CARBON DIOXIDE 26 mmol/l (22-30); CHLORIDE 103 mmol/l (95-108); CREATININE 2.4 mg/dL (0.5-1.0); ESTIMATED GFR 20 ML/MIN (>=90 (CALC)); LIPASE 33 u/l (23-300); POTASSIUM 4.9 mmol/l (3.5-5.1); SGOT/AST 23 u/l (9-36); SODIUM 134 mmol/l (137-146); TOTAL PROTEIN 7.2 g/dL (6.3-8.2)
[2024-06-15 02:05] LABS: ACT PARTIAL THROMBO TIME 26.6 SECONDS (20.0-32.5); INTERNATIONAL NORMALIZED RATIO 1.2 RATIO (0.7-1.3)
[2024-06-15 02:06] LABS: PROTHROMBIN TIME 12.3 SECONDS (9.0-12.5)
[2024-06-15 02:20] LABS: D-DIMER 5.7 mg/L (0.19-0.60)
--- NOTE | 2024-06-15 02:30 | NUR ---
Pt. rechecked post pain med administration. Pain level (1-10): 3/10 Pain better/worse: BETTER PT REPORTS IMPROVEMENT OF CHEST PAIN POST IV MED ADMINISTRATION.
--- NOTE | 2024-06-15 03:40 | NUR ---
pt laying in bed resting. Pt reports no chest pain at this time, radiology reports and second troponin pending at this time. Pt updated on current plan of care and wait time. Pt voices understanding. Vital signs stable, call light within reach.
--- NOTE | 2024-06-15 04:20 | NUR ---
MD at bedside reviewing results with patient and
[2024-06-15] MEDS ORDERED: ONDANSETRON 4 MG/TAB ODT PO PRN (04:40)
[2024-06-15] MEDS ORDERED: ONDANSETRON HCl 4 MG/2 ML SDV IV PRN (04:40)
[2024-06-15] MEDS ORDERED: FAMOTIDINE 10MG/ML 2ML SDV IV PRN (04:40)
[2024-06-15] MEDS ORDERED: IBUPROFEN 800 MG/TAB PO PRN (04:40)
[2024-06-15] MEDS ORDERED: ACETAMINOPHEN 325 MG/TAB PO PRN (04:40)
[2024-06-15] MEDS ORDERED: ALUM & MAG HYDROX-SIMETHICONE 30 ML PO PRN (04:40)
[2024-06-15] MEDS ORDERED: KETOROLAC TROMETHAMINE 30 MG/ML SDV IV PRN (04:40)
[2024-06-15] MEDS ORDERED: Polyethylene Glycol 3350 17 GM/PKT PO PRN (04:40)
--- NOTE | 2024-06-15 05:00 | NUR ---
attempted to call and give pt report, nurse not available at this time.
[2024-06-15] MEDS ORDERED: CLARIFY DOSE IV PRN (05:10)
[2024-06-15] MEDS ORDERED: CLARIFY DOSE SC PRN (05:10)
[2024-06-15] MEDS ORDERED: ENOXAPARIN SODIUM 100 MG/ML SYR SC SCH (05:15)
--- NOTE | 2024-06-15 05:15 | NUR ---
attempted to call report, nurse not available at this time.
--- NOTE | 2024-06-15 05:37 | NUR ---
pt report given to Su MANRIQUEZ at this time
--- NOTE | 2024-06-15 05:50 | NUR ---
pt transported to [facility] room 262 with tele box #6 via stretcher
--- NOTE | 2024-06-15 07:15 | NUR ---
BEDSIDE SHIFT REPORT RECEIVED FROM STEVE MANRIQUEZ. PT RESTING IN BED WITH EYES CLOSED AND RESP AT EASE. CALL LIGHT IN REACH. WILL MONITOR.
[2024-06-15] MEDS ORDERED: AMIODARONE 200 MG/TAB PO SCH (09:00)
[2024-06-15] MEDS ORDERED: ASPIRIN 81 MG/TAB PO SCH ×2 (09:00→21:00)
[2024-06-15] MEDS ORDERED: CARVEDILOL 6.25 MG/TAB PO SCH (09:00)
[2024-06-15] MEDS ORDERED: ESCITALOPRAM 10 MG/TAB PO SCH (09:00)
[2024-06-15] MEDS ORDERED: PANTOPRAZOLE SODIUM Sesquihydr 40 MG/TAB PO SCH (09:00)
--- NOTE | 2024-06-15 09:00 | NUR ---
BEDSIDE ADMISSION ASSESSMENT COMPLETED. PT C/O FEELING TIRED. H/H LOW AND DR. CHAN AWARE. PT INDICATED SHES BEEN TOLD HER BLOOD LEVELS HAVE BEEN LOW. PT HAS BEEN ON PROCRIT BEFORE. GENERALIZED WEAKNESS NOTED. PUREWIK PLACED D/T INCONTINENCE, MEPIPLEX BORDER PLACED TO SACRUM FOR PREVENTION. PT ELLEN BRIDGES. WILL MONITOR.
--- NOTE | 2024-06-15 13:00 | NUR ---
PT REMAINS RESTING IN BED WITH VISITING. INDICATED PT DUE FOIR HER PROCRIT AND NUCALA INJECTIONS TOMORROW AT HER CANCER MD. HE ALSO INDICATED DOSE OF PROCRIT "INCREASED TO 30" AND THAT HER LAST HGB WAS " 8.2". DR. CHAN CALLED AND INFORMED. PT REMAINS TO REST HEAVILY BUT REMAINS AROUSABLE WITH VSS. WILL CONTINUE TO MONITOR. BED ALARM IN PLACE AND CALL LIGHT IN REACH.
--- NOTE | 2024-06-15 18:08 | NUR ---
PT RESTED IN BED ALL SHIFT AND AROUSED TO BE REPOSITIONED AND FOR MEALS OTHERWISE SLEPT DUE TO FEELING TIRED. NO CHANGES IN TELE OR VS. PT AWAITING ECHO IN AM. PUREWIK IN PLACE AND CALL LIGHT MAINTAINED IN REACH AND BED ALARM IN PLACE.
--- NOTE | 2024-06-15 20:00 | NUR ---
[facility] is very lethargic and sleepy. Per dayshift nurse, that has been her baseline all day, provider aware. Patient arouses easily to voice. She is AOx4. Complains of chest pain 4 out 10 no changes since admission. Provider aware. Patient educated to call RN if pain gets any higher than that. Patient verbalizes understanding. RN asked how much patient had to eat during the day and she replies with "not much". Will check BG mid-shift. Bed alarm is on. Call light within reach
[2024-06-16] VITALS (15 sets, daily range): BP systolic 106–135; BP diastolic 36–73
--- NOTE | 2024-06-16 00:30 | NUR ---
Patient sleeping. No changes in reasessment. BG normal. Bed alarm on. Call light within reach
--- NOTE | 2024-06-16 04:50 | NUR ---
RN at bedside for VS. No changes in reassessment. Bed alarm is on. Call light within reach
[2024-06-16] MEDS ORDERED: ENOXAPARIN SODIUM 100 MG/ML SYR SC SCH (05:00)
[2024-06-16] MEDS ORDERED: LEVOTHYROXINE SODIUM 75 MCG/TAB PO SCH (06:00)
[2024-06-16 07:48] LABS: BASO% 0.4 % (0-3); EOS% 0.4 % (0-8); HEMOGLOBIN 7.9 g/dl (12.0-16.0); IMMATURE GRANULOCYTES 0.2 % (0.0-5.0); LYMPH% 11.3 % (15-41); MEAN CELL VOLUME 96.4 fL CALC (80.0-100.0); MEAN CORPUSCULAR HGB 28.2 pG CALC (26.0-32.0); MEAN CORPUSCULAR HGB CONC 29.3 g/dL CAL (32.0-36.0); MONO% 13.3 % (2-13); NEUT# 3.47 thou/uL (2.00-7.15); NEUT% 74.4 % (42-76); RED BLOOD COUNT 2.8 mill/uL (4.20-5.60); RED CELL DISTRI WIDTH 15.4 % (11.5-15.5)
[2024-06-16 07:51] LABS: CREATININE 3.1 mg/dL (0.5-1.0)
[2024-06-16 07:52] LABS: POTASSIUM 5.6 mmol/l (3.5-5.1)
--- NOTE | 2024-06-16 08:00 | NUR ---
PATIENT IS RESTING IN BED HAS NO C/O PAIN AT THIS TIME BUT STILL FEELS SHE CAN NOT INHALE DEEPLY DUE TO DISCOMFORT I N CHEST . WILL HAVE LUNG SCAN TODAY TO RULE OUT PE. IV SITE INTACT
[2024-06-16] MEDS ORDERED: SODIUM CHLORIDE 0.9% 500 ML IV ONE (09:40)
[2024-06-16] MEDS ORDERED: FUROSEMIDE 40 MG/4 ML SDV IV SCH ×3 (10:00→21:00)
--- NOTE | 2024-06-16 12:00 | NUR ---
PATIENT IS RESTING HAS ORDERS FOR BLOOD 2 UNITS . HAS NO C/O PAIN OR DISCOMFORT AT THIS TIME. AT BEDSIDE
--- NOTE | 2024-06-16 16:00 | NUR ---
PATIENT IS RESTING TOLERATING BLOOD TRANSFUSION WELL IS ON SECOND BAG. SHE STATES SHE IS FEELING MUCH BETTER. HAS NO C/O PAIN OR DISCOMFORT AT THIS TIME
--- NOTE | 2024-06-16 20:00 | NUR ---
Report received from daysmnft nurse. at bedside. Patient receiving last unit of RBC. VS within parameters. AOx4. Bed alarm is on. Call light within reach
[2024-06-17] VITALS (8 sets, daily range): BP systolic 117–143; BP diastolic 49–74
--- NOTE | 2024-06-17 | NUR ---
Patient sleeping. No signs of discomfort. VS WNL. bed alarm on. no changes in reassessment call light within reach
--- NOTE | 2024-06-17 04:03 | NUR ---
Patient sleeping. No signs of distress. VS WNL. Call light within reach
[2024-06-17 04:56] LABS: BASO% 0.4 % (0-3); EOS% 0.4 % (0-8); HEMATOCRIT 32.3 % (37.0-47.0); LYMPH% 16.1 % (15-41); MEAN CELL VOLUME 95.3 fL CALC (80.0-100.0); MEAN CORPUSCULAR HGB 29.8 pG CALC (26.0-32.0); MEAN CORPUSCULAR HGB CONC 31.3 g/dL CAL (32.0-36.0); MONO% 11.5 % (2-13); NEUT# 3.28 thou/uL (2.00-7.15); NEUT% 71.6 % (42-76); RED BLOOD COUNT 3.39 mill/uL (4.20-5.60); RED CELL DISTRI WIDTH 15.3 % (11.5-15.5)
[2024-06-17 05:14] LABS: HEMOGLOBIN 10.1 g/dl (12.0-16.0)
[2024-06-17 05:16] LABS: ALBUMIN 3.3 g/dL (3.2-5.0); CREATININE 2.9 mg/dL (0.5-1.0); MAGNESIUM 1.8 mg/dL (1.6-2.3); TOTAL PROTEIN 6.6 g/dL (6.3-8.2)
[2024-06-17 05:18] LABS: BILIRUBIN, TOTAL 1.3 mg/dL (0.02-1.3)
[2024-06-17] MEDS ORDERED: methylPREDNISolone Sod Succ 40 MG/ML SDV IV SCH (10:00)
[2024-06-17] MEDS ORDERED: IPRATROPIUM-Albuterol 0.5MG-2.5MG/3 ML NEB SCH (13:00)
[2024-06-18] VITALS (10 sets, daily range): BP systolic 102–148; BP diastolic 56–87
[2024-06-18 05:31] LABS: ALBUMIN 3.5 g/dL (3.2-5.0); CREATININE 2.9 mg/dL (0.5-1.0); MAGNESIUM 1.8 mg/dL (1.6-2.3); POTASSIUM 4.7 mmol/l (3.5-5.1); TOTAL PROTEIN 6.9 g/dL (6.3-8.2)
[2024-06-18 05:34] LABS: BASO% 0.3 % (0-3); HEMATOCRIT 35.6 % (37.0-47.0); HEMOGLOBIN 11.2 g/dl (12.0-16.0); IMMATURE GRANULOCYTES 0.5 % (0.0-5.0); MEAN CELL VOLUME 93.2 fL CALC (80.0-100.0); MEAN CORPUSCULAR HGB 29.3 pG CALC (26.0-32.0); MEAN CORPUSCULAR HGB CONC 31.5 g/dL CAL (32.0-36.0); MONO% 2.5 % (2-13); NEUT# 3.23 thou/uL (2.00-7.15); NEUT% 88.7 % (42-76); RED BLOOD COUNT 3.82 mill/uL (4.20-5.60)
--- NOTE | 2024-06-18 05:42 | NUR ---
Patient is weak and would not tolerate 2 views x ray. Ordered portable x ray. Nurse extraction supervisor aware and agreed.
--- NOTE | 2024-06-18 19:30 | NUR ---
awake. no acute distress. no c/o chest pain voiced. monitor technician shows a fib paced beats. po fluids taken fair. purewick cath in place. urine clear. fall precautions cont.
[2024-06-18] MEDS ORDERED: FUROSEMIDE 40 MG/TAB PO SCH (21:00)
--- NOTE | 2024-06-18 23:00 | NUR ---
urine spec collected & sent to lab
--- NOTE | 2024-06-19 00:01 | NUR ---
eyes closed. not awakened for vitals.
[2024-06-19 00:33] LABS: URINE BILIRUBIN - DIPSTICK Negative (NEGATIVE); URINE BLOOD DIPSTICK Negative (NEGATIVE); URINE COLOR Yellow; URINE GLUCOSE - DIPSTICK Negative (NEGATIVE); URINE KETONE Negative (NEGATIVE); URINE LEUK ESTERASE Negative (NEGATIVE); URINE NITRITE - DIPSTICK Negative (Negative); URINE PROTEIN - DIPSTICK Negative (NEG-TRACE); URINE SPECIFIC GRAVITY 1.015; URINE UROBILINOGEN - DIPSTICK 0.2 E.U./dL (0.2)
--- NOTE | 2024-06-19 04:00 | NUR ---
nuclear monitoring technician shows a fib occas paced beats.
[2024-06-19 04:10] VITALS: BP 141/86
[2024-06-19 05:52] VITALS: BP 137/80
[2024-06-19 06:12] LABS: BASO% 0.2 % (0-3); HEMOGLOBIN 11.5 g/dl (12.0-16.0); IMMATURE GRANULOCYTES 0.6 % (0.0-5.0); LYMPH% 4.9 % (15-41); MEAN CELL VOLUME 90.5 fL CALC (80.0-100.0); MEAN CORPUSCULAR HGB 28.9 pG CALC (26.0-32.0); MEAN CORPUSCULAR HGB CONC 31.9 g/dL CAL (32.0-36.0); MONO% 3.7 % (2-13); NEUT# 5.96 thou/uL (2.00-7.15); NEUT% 90.6 % (42-76); RED BLOOD COUNT 3.98 mill/uL (4.20-5.60); RED CELL DISTRI WIDTH 14.9 % (11.5-15.5)
[2024-06-19 06:25] LABS: ALBUMIN 3.5 g/dL (3.2-5.0); BILIRUBIN, TOTAL 0.7 mg/dL (0.02-1.3); CREATININE 2.6 mg/dL (0.5-1.0); MAGNESIUM 1.8 mg/dL (1.6-2.3); POTASSIUM 4.8 mmol/l (3.5-5.1); TOTAL PROTEIN 6.8 g/dL (6.3-8.2)
[2024-06-19 07:07] VITALS: BP 137/80
--- NOTE | 2024-06-19 07:51 | NUR ---
PT SLEEPING COMFORTABLY AT THIS TIME, RESPIRATIONS ARE EVEN AND UNLABORED ON 3L O2.
[2024-06-19] MEDS ORDERED: Polyethylene Glycol 3350 17 GM/PKT PO PRN (08:10)
[2024-06-19] MEDS ORDERED: LACTULOSE 20 GM/30 ML UDC PO SCH (08:30)
[2024-06-19 09:22] VITALS: BP 120/71
[2024-06-19] MEDS ORDERED: LASIX 40 MG TAB40 MG PO (10:28)
[2024-06-19] MEDS ORDERED: PREDNISONE10 MG PO (10:33)
[2024-06-19 11:41] VITALS: BP 120/71
--- NOTE | 2024-06-19 13:22 | NUR ---
REPORT CALLED/GIVEN TO EREN AT [facility]
--- NOTE | 2024-06-19 13:30 | NUR ---
PT LEFT THE UNIT WITH STAFF TRANSPORT WITH BELONGINGS IN HAND.
== END 2024-06-19 13:28 | DRG 291 ==
LOC: ED 01:17 → ED-I 04:08 → ED 04:40 → MS2 04:41
PROVIDERS: Family Medicine; Nurse Practitioner Family; ADMIT Internal Medicine; ATTEND Internal Medicine
PROC: 30233N1 Transfusion of Nonautologous Red Blood Cells into Peripheral Vein, Percutaneous Approach (ICD-10-PCS; principal; 2024-06-16)
PROC: 30233N1 Transfusion of Nonautologous Red Blood Cells into Peripheral Vein, Percutaneous Approach (ICD-10-PCS; 2024-06-16)
DX: I13.0 Hypertensive heart and chronic kidney disease with heart failure and stage 1 through stage 4 chronic kidney disease, or unspecified chronic kidney disease (principal); I50.23 Acute on chronic systolic (congestive) heart failure; N18.4 Chronic kidney disease, stage 4 (severe); J96.11 Chronic respiratory failure with hypoxia; D63.1 Anemia in chronic kidney disease; J45.50 Severe persistent asthma, uncomplicated; I48.0 Paroxysmal atrial fibrillation; J43.9 Emphysema, unspecified; J44.89 Other specified chronic obstructive pulmonary disease; E03.9 Hypothyroidism, unspecified; Z99.81 Dependence on supplemental oxygen; Z87.891 Personal history of nicotine dependence; Z95.0 Presence of cardiac pacemaker
CPT/HCPCS: A9540; J1650; J1940; P9016